=== PATIENT | male | born 1930 | race Caucasian/White ===

== ENCOUNTER 2017-07-31 16:13 | Observation (INO) | payer OTHER ==
[2017-07-31] VITALS (7 sets, daily range): BP systolic 114–140; BP diastolic 60–81; PULSE 62–77; RESP 14–18; TEMP 98.4–99.7; O2SAT 95–98
[~2017-07-31] VITALS: Ht 167.6 cm; Wt 50.7 kg
[~2017-07-31 16:13] MED LIST: CALCCHW9 PO; MULT1TAB85 PO; NUTR-215 PO
[2017-07-31] MEDS ORDERED: SODIUM CHLORIDE 0.9% FLUSH 10 ML FLUSH IVF PRN (16:30)
--- NOTE | 2017-07-31 16:32 | PD ---
HPI Chief Complaint: Cold / Flu Symptoms Time Seen by Provider: 16:22 Travel History International Travel<30 days: No Contact w/Intl Traveler<30days: No Traveled to known affect area: No History of Present Illness HPI 86-year-old male with history of diabetes, here with his for evaluation of cough. Apparently the patient has had cough and upper respiratory symptoms for the last 3 weeks. About 3 weeks ago he was prescribed a Z-Lam by his primary care physician. His symptoms have not improved and actually worsened over the last 2 days. Cough is nonproductive. He has not had any fevers. He denies chest pain or dyspnea. About an hour after the patient had arrived, more family has show up and they tell me that since yesterday the patient has been having episodes of shaking loss of off balance. PFSH Past Medical History Hx Anticoagulant Therapy: No Diabetes: No Social History Alcohol Use: No Tobacco Use: No Substance Use: No Allergies-Medications (Allergen,Severity, Reaction): Coded Allergies: No Known Allergies (Unverified Adverse Reaction, Unknown, 07/31/17) Reported Meds & Prescriptions Reported Meds & Active Scripts Active Reported Metformin (Metformin HCl) 500 Mg Tab 0.5 Tab PO BIDPC Tamsulosin (Tamsulosin HCl) 0.4 Mg Cap 0.4 Mg PO HS Finasteride 5 Mg Tab 5 Mg PO DAILY Do not crush. Review of Systems Except as stated in HPI: all other systems reviewed are Neg Physical Exam Narrative GENERAL: Well-developed, thin, elderly appearing male, comfortable, no apparent distress. SKIN: Focused skin assessment warm/dry. HEAD: Atraumatic. Normocephalic. EYES: Pupils equal and round. No scleral icterus. No injection or drainage. ENT: Mucous membranes pink and moist. NECK: Trachea midline. No JVD. CARDIOVASCULAR: Regular rate and rhythm. No murmur appreciated. RESPIRATORY: No accessory muscle use. Clear to auscultation. Breath sounds equal bilaterally. GASTROINTESTINAL: Abdomen soft, non-tender, nondistended. MUSCULOSKELETAL: No obvious deformities. No clubbing. No cyanosis. No edema. NEUROLOGICAL: Awake and alert. No obvious cranial nerve deficits. Motor grossly within normal limits. Normal speech. PSYCHIATRIC: Appropriate mood and affect; insight and judgment normal. Data Data Last Documented VS Vital Signs Date Time Temp Pulse Resp B/P (MAP) Pulse Ox O2 Delivery O2 Flow Rate FiO2 10/31/17 19:11 77 18 138/74 (95) 98 Room Air 07/31/17 16:16 98.4 Orders Orders Complete Blood Count With Diff (07/31/17 16:27) Comprehensive Metabolic Panel (07/31/17 16:27) Act Partial Throm Time (Ptt) (07/31/17 16:27) Prothrombin Time / Inr (Pt) (07/31/17 16:27) Urinalysis - C+S If Indicated (07/31/17 16:27) Influenzae A/B Antigen (07/31/17 16:27) Iv Access Insert/Monitor (07/31/17 16:27) Ecg Monitoring (07/31/17 16:27) Oximetry (07/31/17 16:27) Oxygen Administration (07/31/17 16:27) Chest, Single Ap (07/31/17 16:27) Sodium Chloride 0.9% Flush (Ns Flush) (07/31/17 16:30) Ct Brain W/O Iv Contrast(Rout) (07/31/17 ) Orthostatic Vital Signs (07/31/17 17:31) Electrocardiogram (07/31/17 ) Ckmb (Isoenzyme) Profile (07/31/17 17:53) Troponin I (07/31/17 17:53) Levofloxacin 500 Mg Premix Inj (Levaquin (07/31/17 18:45) Labs Laboratory Tests Test 07/31/17 16:40 07/31/17 17:35 White Blood Count 4.9 TH/MM3 Red Blood Count 3.94 MIL/MM3 Hemoglobin 12.2 GM/DL Hematocrit 37.5 % Mean Corpuscular Volume 95.3 FL Mean Corpuscular Hemoglobin 31.0 PG Mean Corpuscular Hemoglobin Concent 32.5 % Red Cell Distribution Width 12.8 % Platelet Count 162 TH/MM3 Mean Platelet Volume 8.4 FL Neutrophils (%) (Auto) 59.5 % Lymphocytes (%) (Auto) 23.0 % Monocytes (%) (Auto) 13.7 % Eosinophils (%) (Auto) 3.0 % Basophils (%) (Auto) 0.8 % Neutrophils # (Auto) 3.0 TH/MM3 Lymphocytes # (Auto) 1.1 TH/MM3 Monocytes # (Auto) 0.7 TH/MM3 Eosinophils # (Auto) 0.1 TH/MM3 Basophils # (Auto) 0.0 TH/MM3 CBC Comment DIFF FINAL Differential Comment Prothrombin Time 10.2 SEC Prothromb Time International Ratio 0.9 RATIO Activated Partial Thromboplast Time 27.1 SEC Blood Urea Nitrogen 32 MG/DL Creatinine 1.00 MG/DL Random Glucose 147 MG/DL Total Protein 6.8 GM/DL Albumin 2.9 GM/DL Calcium Level 8.8 MG/DL Alkaline Phosphatase 75 U/L Aspartate Amino Transf (AST/SGOT) 25 U/L Alanine Aminotransferase (ALT/SGPT) 18 U/L Total Bilirubin 0.4 MG/DL Sodium Level 140 MEQ/L Potassium Level 4.3 MEQ/L Chloride Level 103 MEQ/L Carbon Dioxide Level 30.8 MEQ/L Anion Gap 6 MEQ/L Estimat Glomerular Filtration Rate 71 ML/MIN Total Creatine Kinase 69 U/L Troponin I 0.06 NG/ML Urine Color YELLOW Urine Turbidity CLEAR Urine pH 7.0 Urine Specific [place] 1.020 Urine Protein NEG mg/dL Urine Glucose (UA) NEG mg/dL Urine Ketones NEG mg/dL Urine Occult Blood NEG Urine Nitrite NEG Urine Bilirubin NEG Urine Leukocyte Esterase NEG Urine WBC 0-2 /hpf Urine Squamous Epithelial Cells 0-5 /hpf Microscopic Urinalysis Comment CULT NOT INDICATED MDM Medical Decision Making Medical Screen Exam Complete: Yes Emergency Medical Condition: Yes Medical Record Reviewed: Yes Interpretation(s) EKG: Sinus, rate 63, leftward axis, left bundle branch block Differential Diagnosis Pneumonia, bronchitis, ACS, PE unlikely, influenza, URI Narrative Course Initial vital signs show heart rate 68, blood pressure 127/60, pulse ox 97% on room air, oral temp of 98.4F. Orthostatic vital signs were performed and shows that blood pressure goes from 140/81-124/72 114/70 from supine to sitting to standing with slight increase in heart rate from 63-79-81. CBC: WBC 4.9, hemoglobin 12.2, hematocrit 37.5, platelets 162. CMP is remarkable for random glucose 147, otherwise unremarkable. UA is not suggestive of UTI. 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 There is no evidence of pneumonia. CT head: No acute findings. Probable ischemic change in the white matter. EKG shows a left bundle branch block pattern. I do not have a previous one to compare to. The family is unaware of history of left bundle branch block. Cardiac enzymes added and show a troponin of 0.06. The patient is denying chest pain. He is however having dizziness upon standing and is unsteady on his feet. I will give him Levaquin for this deep sounding cough that he has which is likely bronchitis. He will be admitted for overnight observation for serial cardiac enzymes and reevaluation in the morning. Case discussed with hospitalist Dr. Lawson who will limit the patient to his service. Diagnosis Primary Impression: Generalized weakness Additional Impressions: Bronchitis Elevated troponin Left bundle branch block Eric Guzman MD Jul 31, 2017 16:32
[2017-07-31] MEDS ORDERED: TAMS0.4C4 PO (16:34)
[2017-07-31] MEDS ORDERED: METF500T PO (16:34)
[2017-07-31] MEDS ORDERED: FINA5TAB2 PO (16:34)
[2017-07-31 16:48] LABS: BASOPHIL % 0.8 % (0.0-2.0); EOSINOPHIL # 0.1 TH/MM3 (0-0.4); HEMATOCRIT 37.5 % (39.0-51.0); HEMO FLAGS DIFF FINAL; LYMPHOCYTE # 1.1 TH/MM3 (1.0-4.8); MEAN CELL VOLUME 95.3 FL (80.0-100.0); MEAN CORPUSCULAR HGB CONC 32.5 % (32.0-36.0); MONO % 13.7 % (0.0-8.0); NEUT % 59.5 % (16.0-70.0); PLATELET COUNT 162 TH/MM3 (150-450); RED BLOOD COUNT 3.94 MIL/MM3 (4.50-5.90); RED CELL DISTRIBUTION WIDTH 12.8 % (11.6-17.2); WHITE BLOOD COUNT 4.9 TH/MM3 (4.0-11.0)
[2017-07-31 16:56] LABS: CHLORIDE 103 MEQ/L (98-107); POTASSIUM 4.3 MEQ/L (3.5-5.1); SODIUM (NA) 140 MEQ/L (136-145)
[2017-07-31 16:59] LABS: ANION GAP 6 MEQ/L (5-15); APTT (PATIENT) 27.1 SEC (24.3-30.1); BICARBONATE 30.8 MEQ/L (21.0-32.0); BLOOD UREA NITROGEN 32 MG/DL (7-18); INTERNATIONAL NORMALIZED RATIO 0.9 RATIO; PROTHROMBIN TIME - PATIENT 10.2 SEC (9.8-11.6)
[2017-07-31 17:02] LABS: ALT (GPT) 18 U/L (12-78); AST (GOT) 25 U/L (15-37); GLOMERULAR FILTRATION RATE 71 ML/MIN (>89)
[2017-07-31 17:04] LABS: TOTAL BILIRUBIN ADULT 0.4 MG/DL (0.2-1.0)
[2017-07-31 17:05] LABS: ALKALINE PHOSPHATASE 75 U/L (45-117)
--- NOTE | 2017-07-31 17:15 | RADRPT ---
EXAM DATE/TIME: 07/31/2017 16:47 [facility] COMPARISON: No previous studies available for comparison. INDICATIONS : Short of breath MEDICAL HISTORY : None. SURGICAL HISTORY : None. ENCOUNTER: Initial ACUITY: 2 days PAIN SCORE: 0/10 LOCATION: chest FINDINGS: The cardiac silhouette is enlarged in transverse diameter. The aortic knob is prominent with tortuosi ty of the descending thoracic aorta. The background interstitium is prominent though this is likely c hronic in nature. There is no evidence of pneumonia. No pleural effusions are identified. CONCLUSION: 1. 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 There is no evidence of pneumonia. Mingo Hodge MD on July 31, 2017 at 17:12 Board Certified Radiologist. This report was verified electronically.
[2017-07-31 17:44] LABS: BLOOD, URINE NEG (NEG); GLUCOSE,URINE NEG (NEG); KETONE, URINE NEG (NEG); NITRITE,URINE NEG (NEG)
[2017-07-31 17:48] LABS: URINE COLOR YELLOW (YELLW/STRAW)
[2017-07-31 17:49] LABS: COMMENT (UR) CULT NOT INDICATED; CULTURE IF INDICATED CULT NOT INDICATED; SQUAMOUS EPITHELIAL CELL URINE 0-5 /hpf (0-5); WBC, URINE 0-2 /hpf (0-5)
--- NOTE | 2017-07-31 18:13 | RADRPT ---
EXAM DATE/TIME: 07/31/2017 17:46 [facility] COMPARISON: No previous studies available for comparison. INDICATIONS : Dizziness. RADIATION DOSE: 59.25 CTDIvol (mGy) MEDICAL HISTORY : Diabetes. SURGICAL HISTORY : None. ENCOUNTER: Initial ACUITY: 1 day PAIN SCALE: 0/10 LOCATION: cranial TECHNIQUE: Multiple contiguous axial images were obtained of the head. Using automated exposure control and adj ustment of the mA and/or kV according to patient size, radiation dose was kept as low as reasonably a chievable to obtain optimal diagnostic quality images. DICOM format image data is available electro nically for review and comparison. FINDINGS: CEREBRUM: The ventricles are normal for age. No evidence of midline shift, mass lesion, hemorrhage or acute in farction. Diffuse decreased attenuation in the supratentorial white matter suggesting ischemic demye lination. 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 No extra-axial fluid collections ar e seen. POSTERIOR FOSSA: The cerebellum and brainstem are intact. The 4th ventricle is midline. The cerebellopontine angle i s unremarkable. EXTRACRANIAL: The visualized portion of the orbits is intact. SKULL: The calvaria is intact. No evidence of skull fracture. CONCLUSION: 1. No acute findings. 2. Probable ischemic change in the white matter. Jon Curtis MD on July 31, 2017 at 18:10 Board Certified Radiologist. This report was verified electronically.
[2017-07-31] MEDS ORDERED: LEVOFLOXACIN 500 MG PREMIX INJ 100 ML IV ONE (18:45)
[2017-07-31] MEDS ORDERED: SENNOSIDES 8.6 MG TAB PO PRN (20:00)
[2017-07-31] MEDS ORDERED: SODIUM CHLORIDE 0.9% FLUSH 10 ML FLUSH IV FLUSH PRN (20:00)
[2017-07-31] MEDS ORDERED: NALOXONE HCL 0.4 MG/ML AMP IV PUSH PRN (20:00)
[2017-07-31] MEDS ORDERED: BISACODYL 10 MG SUPP RECTAL PRN (20:00)
[2017-07-31] MEDS ORDERED: MAGNESIUM HYDROXIDE SUSP 30 ML CUP PO PRN (20:00)
[2017-07-31] MEDS ORDERED: LACTULOSE SYRUP 20 GM/30 ML CUP PO PRN (20:00)
[2017-07-31] MEDS: D5-1/2 NS + KCL 20 MEQ INJ 1,000 ML IV SCH (20:57)
[2017-07-31] MEDS: INSULIN ASPART SUPPLEMENTAL SCALE SQ SCH (21:00)
--- NOTE | 2017-07-31 21:02 | EKG ---
Date Performed: 07/31/2017 Time Performed: 17:42:16 PTAGE: 86 years EKG: Sinus rhythm WITH FIRST DEGREE AV BLOCK MARKED LEFT AXIS DEVIATION LEFT BUNDLE BRANCH BLOCK ABNORMAL ECG PREVIOUS TRACING : 11/29/2001 07.31 Compared to the previous tracing LBBB now present DOCTOR: Pineda Foy Interpretating Date/Time 07/31/2017 21:01:38
[2017-07-31] MEDS: RESP: ALBUTEROL 2.5 MG/IPRATROPIUM 0.5 MG NEB (SCH) NEB (21:24)
[2017-07-31] MEDS: SODIUM CHLORIDE 0.9% FLUSH 10 ML FLUSH IV FLUSH SCH (23:03)
[2017-08-01] VITALS: BP 106/60; PULSE 65; RESP 16; TEMP 99.6; O2SAT 94
[2017-08-01] MEDS: RESP: ALBUTEROL 2.5 MG/IPRATROPIUM 0.5 MG NEB (SCH) NEB ×3 (02:51→15:25)
[2017-08-01 04:00] VITALS: BP 100/71; PULSE 70; RESP 16; TEMP 98.7; O2SAT 94
[2017-08-01 06:29] LABS: AUTOMATED NEUTROPHIL # 2.4 TH/MM3 (1.8-7.7); BASOPHIL % 0.4 % (0.0-2.0); EOSINOPHIL # 0.1 TH/MM3 (0-0.4); EOSINOPHIL % 1.6 % (0.0-4.0); HEMO FLAGS DIFF FINAL; LYMPH % 23.2 % (9.0-44.0); MEAN CELL VOLUME 95.9 FL (80.0-100.0); MEAN CORPUSCULAR HGB CONC 33.3 % (32.0-36.0); MONO % 14.1 % (0.0-8.0); NEUT % 60.7 % (16.0-70.0); PLATELET COUNT 160 TH/MM3 (150-450); RED BLOOD COUNT 3.65 MIL/MM3 (4.50-5.90); RED CELL DISTRIBUTION WIDTH 13.5 % (11.6-17.2); WHITE BLOOD COUNT 4.1 TH/MM3 (4.0-11.0)
[2017-08-01 06:34] LABS: CHLORIDE 102 MEQ/L (98-107); SODIUM (NA) 139 MEQ/L (136-145)
[2017-08-01 06:37] LABS: ANION GAP 8 MEQ/L (5-15); BICARBONATE 29.4 MEQ/L (21.0-32.0); BLOOD UREA NITROGEN 26 MG/DL (7-18)
[2017-08-01 06:40] LABS: ALT (GPT) 15 U/L (12-78); AST (GOT) 20 U/L (15-37); GLOMERULAR FILTRATION RATE 76 ML/MIN (>89)
[2017-08-01 06:42] LABS: TOTAL BILIRUBIN ADULT 0.3 MG/DL (0.2-1.0)
[2017-08-01 06:43] LABS: ALKALINE PHOSPHATASE 65 U/L (45-117)
[2017-08-01 07:50] VITALS: BP 115/61; PULSE 60; RESP 20; TEMP 97.5; O2SAT 97
[2017-08-01 08:00] VITALS: PULSE 68
[2017-08-01] MEDS: INSULIN ASPART SUPPLEMENTAL SCALE SQ SCH ×2 (08:00→13:57)
[2017-08-01] MEDS ORDERED: BENZONATATE 100 MG CAP PO PRN (09:00)
[2017-08-01] MEDS: ASPIRIN EC 81 MG TABEC PO SCH ×3 (09:00→13:59)
[2017-08-01] MEDS: SODIUM CHLORIDE 0.9% FLUSH 10 ML FLUSH IV FLUSH SCH (10:15)
[2017-08-01] MEDS: D5-1/2 NS + KCL 20 MEQ INJ 1,000 ML IV SCH (10:16)
[2017-08-01 11:50] VITALS: BP 111/64; PULSE 62; RESP 20; TEMP 97.5; O2SAT 97
--- NOTE | 2017-08-01 15:08 | HHI.HP ---
[facility] Service [place] [facility] Primary Care Physician Андрей Disla MD Admission Diagnosis generalized weakness, bronchitis, elevated troponin, LBBB Diagnoses: Travel History International Travel<30 Days: No Contact w/Intl Traveler <30 Da: No Traveled to Known Affected Are: No History of Present Illness This is a pleasant 86 year-old male with past medical history of BPH, borderline diabetes who was brought to the ER by his for evaluation of cough and generalized weakness. The patient has been having a cough for several weeks. This initially started with postnasal drip and runny nose. He was prescribed a Z-Lam by his primary care physician however the cough did not improve. Over the past several days has been getting deeper however he is not producing any sputum. Yesterday he was quite weak and his had to assist him getting up off the toilet and he fell suffering a bruise on his right forearm. The patient has not had any fever or chills. No dyspnea. No chest pain or pressure. No nausea or vomiting. No abdominal pain. No rashes. No difficulty urinating. In the emergency department his orthostatic blood pressure was positive. For some reason a troponin was checked which was mildly elevated at 0.06. EKG showed a left bundle branch block which the family was unaware of. He has no cardiac history and does not see a resident physician. They are unaware if he is ever had a stress test. The patient has not had any chest pain or pressure. No exertional dyspnea. No palpitations or pedal edema. No syncopal episodes. Chest x-ray in the emergency department revealed chronic interstitial changes without evidence of pneumonia. Patient has no tobacco history. The patient has been following with the neurologist Dr. Craft for evaluation of intermittent confusion and forgetfulness. He has not received formal diagnosis of dementia. History obtained from the patient his and daughter at bedside. Review of Systems Constitutional: DENIES: Fever, Chills Ears, nose, mouth, throat: COMPLAINS OF: Running Nose, DENIES: Throat pain, Hoarseness Respiratory: COMPLAINS OF: Cough, DENIES: Wheezing, Sputum production, Shortness of breath Cardiovascular: DENIES: Chest pain, Palpitations, Syncope, Lower Extremity Edema Gastrointestinal: DENIES: Constipation, Vomiting Genitourinary: DENIES: Urgency, Dysuria Musculoskeletal: DENIES: Muscle aches, Stiffness, Joint Swelling Integumentary: DENIES: Pruritus, Rash Hematologic/lymphatic: DENIES: Lymphadenopathy Neurologic: DENIES: Abnormal gait, Headache, Localized weakness Psychiatric: COMPLAINS OF: Confusion, DENIES: Anxiety Past Family Social History Past Medical History Confusion possible early dementia BPH with history of urinary retention Order underlying diabetes Past Surgical History He had some type of surgery for GERD daughters not sure if this was a fundoplication Right shoulder surgery 2003 Reported Medications Allergies Coded Allergies Type Severity Reaction Last Updated Verified No Known Allergies Allergy Unknown 07/31/17 No Active Scripts Medications Dose Route/Sig Max Daily Dose Days Date Category Dose Instructions Tessalon Perles (Benzonatate) 100 Mg Cap 100 Mg PO TID PRN 08/01/17 Rx Levaquin (Levofloxacin) 750 Mg Tablet 750 Mg PO DAILY@1800 08/01/17 Rx Metformin (Metformin HCl) 500 Mg Tab 0.5 Tab PO BIDPC 07/31/17 Reported Tamsulosin (Tamsulosin HCl) 0.4 Mg Cap 0.4 Mg PO HS 07/31/17 Reported Finasteride 5 Mg Tab 5 Mg PO DAILY 07/31/17 Reported Do not crush. Allergies: Coded Allergies: No Known Allergies (Unverified Allergy, Unknown, 07/31/17) Family History His father of a cardiac event Social History No history of alcohol tobacco or drug use He was in the and was a paratrooper Lives with his and his daughter lives nearby Physical Exam Vital Signs Vital Signs Date Time Temp Pulse Resp B/P (MAP) Pulse Ox O2 Delivery O2 Flow Rate FiO2 08/01/17 11:50 97.5 62 20 111/64 (80) 97 08/01/17 07:50 97.5 60 20 115/61 (79) 97 08/01/17 04:00 98.7 70 16 100/71 (81) 94 08/01/17 00:00 99.6 65 16 106/60 (75) 94 08/01/17 00:00 94 Room Air 07/31/17 21:30 62 07/31/17 21:15 99.7 65 18 138/78 (98) 95 07/31/17 19:11 77 18 138/74 (95) 98 Room Air 07/31/17 19:11 18 98 Room Air 07/31/17 18:06 62 16 140/77 (98) 96 Room Air 07/31/17 18:01 63 14 140/81 (100) 81 16 124/70 (88) 79 16 114/70 (85) 07/31/17 16:34 98 Room Air 07/31/17 16:29 98 Room Air 07/31/17 16:29 78 98 Room Air 07/31/17 16:16 98.4 68 16 127/60 (82) 97 Physical Exam GENERAL: Well-nourished, well-developed pleasant elderly male patient. SKIN: Warm and dry. No rashes. HEAD: Normocephalic. EYES: No scleral icterus. No injection or drainage. Oropharynx moist, no pharyngeal exudates. Does have some clear rhinorrhea. NECK: Supple, trachea midline. No JVD or lymphadenopathy. CARDIOVASCULAR: Regular rate and rhythm without murmurs, gallops, or rubs. RESPIRATORY: Breath sounds equal bilaterally. No accessory muscle use. Clear to auscultation bilaterally. GASTROINTESTINAL: Bowel sounds normal. Abdomen soft, non-tender, nondistended. EXTREMITIES: No cyanosis, or edema. NEUROLOGICAL: Awake, alert, and oriented x 3. Non-focal. Laboratory Laboratory Tests Test 07/31/17 16:40 07/31/17 17:35 08/01/17 02:40 08/01/17 06:00 White Blood Count 4.9 4.1 Red Blood Count 3.94 3.65 Hemoglobin 12.2 11.7 Hematocrit 37.5 35.0 Mean Corpuscular Volume 95.3 95.9 Mean Corpuscular Hemoglobin 31.0 32.0 Mean Corpuscular Hemoglobin Concent 32.5 33.3 Red Cell Distribution Width 12.8 13.5 Platelet Count 162 160 Mean Platelet Volume 8.4 8.4 Neutrophils (%) (Auto) 59.5 60.7 Lymphocytes (%) (Auto) 23.0 23.2 Monocytes (%) (Auto) 13.7 14.1 Eosinophils (%) (Auto) 3.0 1.6 Basophils (%) (Auto) 0.8 0.4 Neutrophils # (Auto) 3.0 2.4 Lymphocytes # (Auto) 1.1 1.0 Monocytes # (Auto) 0.7 0.6 Eosinophils # (Auto) 0.1 0.1 Basophils # (Auto) 0.0 0.0 CBC Comment DIFF FINAL DIFF FINAL Differential Comment Prothrombin Time 10.2 Prothromb Time International Ratio 0.9 Activated Partial Thromboplast Time 27.1 Blood Urea Nitrogen 32 26 Creatinine 1.00 0.94 Random Glucose 147 136 Total Protein 6.8 6.3 Albumin 2.9 2.7 Calcium Level 8.8 8.5 Alkaline Phosphatase 75 65 Aspartate Amino Transf (AST/SGOT) 25 20 Alanine Aminotransferase (ALT/SGPT) 18 15 Total Bilirubin 0.4 0.3 Sodium Level 140 139 Potassium Level 4.3 4.0 Chloride Level 103 102 Carbon Dioxide Level 30.8 29.4 Anion Gap 6 8 Estimat Glomerular Filtration Rate 71 76 Total Creatine Kinase 69 Troponin I 0.06 0.07 B-Type Natriuretic Peptide 552 Urine Color YELLOW Urine Turbidity CLEAR Urine pH 7.0 Urine Specific [place] 1.020 Urine Protein NEG Urine Glucose (UA) NEG Urine Ketones NEG Urine Occult Blood NEG Urine Nitrite NEG Urine Bilirubin NEG Urine Leukocyte Esterase NEG Urine WBC 0-2 Urine Squamous Epithelial Cells 0-5 Microscopic Urinalysis Comment CULT NOT INDICATED Test 08/01/17 08:25 Troponin I 0.09 Date/Time Source Procedure Growth Status 07/31/17 16:40 Nasal Washing Influenza Types A,B Antigen ([facility]BY) - Final NEGATIVE FOR FLU A AND B ANTIGEN.... Complete Result Diagram: 08/01/17 0600 08/01/17 0600 Imaging Last Impressions Chest X-Ray 07/31/17 1627 Signed Impressions: Service Date/Time: Monday, July 31, 2017 16:47 - CONCLUSION: 1. 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 There is no evidence of pneumonia. Mingo Hodge MD Head CT 07/31/17 0000 Signed Impressions: Service Date/Time: Monday, July 31, 2017 17:46 - CONCLUSION: 1. No acute findings. 2. Probable ischemic change in the white matter. MD Pastor Villalobos VTE Risk Assessment Caprini VTE Risk Assessment: Mod/High Risk (score >= 2) Caprini Risk Assessment Model Point Value = 1 Point Value = 2 Point Value = 3 Point Value = 5 Age 41-60 Minor surgery BMI > 25 kg/m2 Swollen legs Varicose veins or History of unexplained or recurrent spontaneous Oral contraceptives or hormone replacement Sepsis (< 1 month) Serious lung disease, including pneumonia (< 1 month) Abnormal pulmonary function Acute myocardial infarction Congestive heart failure (< 1 month) History of inflammatory bowel disease Medical patient at bed rest Age 61-74 Arthroscopic surgery Major open surgery (> 45 min) Laparoscopic surgery (> 45 min) Malignancy Confined to bed (> 72 hours) Immobilizing plaster cast Central venous access Age >= 75 History of VTE Family history of VTE Factor V Leiden Prothrombin [id number] Lupus anticoagulant Anticardiolipin antibodies Elevated serum homocysteine Heparin-induced thrombocytopenia Other congenital or acquired thrombophilia Stroke (< 1 month) Elective arthroplasty Hip, pelvis, or leg fracture Acute spinal cord injury (< 1 month) Prophylaxis Regimen Total Risk Factor Score Risk Level Prophylaxis Regimen 0-1 Low Early ambulation 2 Moderate Order ONE of the following: *Sequential Compression Device (SCD) *Heparin 5000 units SQ BID 3-4 Higher Order ONE of the following medications: *Heparin 5000 units SQ TID *Enoxaparin/Lovenox 40 mg SQ daily (WT < 150 kg, CrCl > 30 mL/min) *Enoxaparin/Lovenox 30 mg SQ daily (WT < 150 kg, CrCl > 10-29 mL/min) *Enoxaparin/Lovenox 30 mg SQ BID (WT < 150 kg, CrCl > 30 mL/min) AND/OR *Sequential Compression Device (SCD) 5 or more Highest Order ONE of the following medications: *Heparin 5000 units SQ TID (Preferred with Epidurals) *Enoxaparin/Lovenox 40 mg SQ daily (WT < 150 kg, CrCl > 30 mL/min) *Enoxaparin/Lovenox 30 mg SQ daily (WT < 150 kg, CrCl > 10-29 mL/min) *Enoxaparin/Lovenox 30 mg SQ BID (WT < 150 kg, CrCl > 30 mL/min) AND *Sequential Compression Device (SCD) Assessment and Plan Problem List: (1) Orthostatic hypotension ICD Code: I95.1 - Orthostatic hypotension (2) Generalized weakness ICD Code: R53.1 - Weakness Status: Acute (3) Elevated troponin ICD Code: R74.8 - Abnormal levels of other serum enzymes Status: Acute (4) Left bundle branch block ICD Code: I44.7 - Left bundle-branch block, unspecified Status: Acute (5) Bronchitis ICD Code: J40 - Bronchitis, not specified as acute or chronic Status: Acute Assessment and Plan -Bronchitis, sounds a get started off as a virally upper respiratory tract infection. Chest x-ray is not indicative of any infection does show chronic interstitial changes. Patient had received a Z-Lam 2 weeks ago. We will treat him with Levaquin for 7 days. Patient and his family however were educated that he may have cough for up to several weeks after virally upper respiratory tract infection and the antibiotics are not likely to help. They were reassured he has no signs or symptoms consistent with pneumonia. He will be prescribed Levaquin and Tessalon Perles. He is to follow-up with his primary care physician next week. -Left bundle branch block, mildly elevated enzymes which is nonspecific in the absence of any chest pain or pressure. Ischemic workup and cardiology evaluation was offered however the family declines at this time preferring to take him home. -Generalized weakness with orthostatic hypotension. The patient has received IV fluids overnight. He ambulated 130 feet with light contact guard assist with physical therapy. Recommend home health care, this has been ordered. Family counseled on taking care with position changes due to its orthostatic hypertension. Advised that Flomax can worsen orthostatic hypotension however due to his history of urinary retention it sounds as if he needs to stay on this medication. Advised to stay well-hydrated. Discharge home today with home health care Follow-up with PCP next week Stefany Shelton MD Aug 01, 2017 15:08
[2017-08-01] MEDS ORDERED: LEVA750T9 PO (15:11)
[2017-08-01] MEDS ORDERED: BENZ100 PO (15:11)
--- NOTE | 2017-08-01 15:12 | HHI.FF ---
Face to Face Verification Diagnosis: (1) Generalized weakness (2) Bronchitis Physical Therapy Order: Evaluate and Treat Home Health Nursing Order: Medical education Nursing assessment with vital signs I have seen patient Josef Romero on 08/01/17. My clinical findings support the need for the requested home health care services because: Ltd mobility - disease progression Deconditioned w/ increased weakness I certify that my clinical findings support that this patient is homebound because: Impaired cognitive ability/safety Unsteady gait/balance Need for psychosocial assistance Stefany Shelton MD Aug 01, 2017 15:12
[2017-08-01] MEDS ORDERED: LEVOFLOXACIN 750 MG TAB PO SCH ×2 (15:15→18:00)
--- NOTE | 2017-08-01 15:18 | EKG ---
Date Performed: 08/01/2017 Time Performed: 08:28:03 PTAGE: 86 years EKG: ATRIAL FIBRILLATION WITH SLOW VENTRICULAR RESPONSE PAC MARKED LEFT AXIS DEVIATION LEFT BUND LE BRANCH BLOCK ABNORMAL ECG PREVIOUS TRACING : 08/01/2017 02.44 Compared to prior tracing no significant change DOCTOR: Pineda Foy Interpretating Date/Time 08/01/2017 15:16:51
--- NOTE | 2017-08-01 15:27 | EKG ---
Date Performed: 08/01/2017 Time Performed: 02:44:13 PTAGE: 86 years EKG: Sinus rhythm WITH FIRST DEGREE AV BLOCK MARKED LEFT AXIS DEVIATION LEFT BUNDLE BRANCH BLOCK ABNORMAL ECG PREVIOUS TRACING : 07/31/2017 17.42 Compared to prior tracing no significant change DOCTOR: Pineda Foy Interpretating Date/Time 08/01/2017 15:26:07
[2017-08-01 15:30] VITALS: BP 122/66; PULSE 76; RESP 20; TEMP 97.4; O2SAT 95
[2017-08-01] MEDS ORDERED: ASPI1TAB57 PO (15:59)
== END 2017-08-01 16:44 | disposition home or self-care (01) ==
LOC: PHED 16:13 → PHEDA 19:49 → PH3A 21:12
PROVIDERS: ADMIT Family Medicine; ATTEND Family Medicine
DX: J40 Bronchitis, not specified as acute or chronic (principal); I95.1 Orthostatic hypotension; R74.8 Abnormal levels of other serum enzymes; I44.7 Left bundle-branch block, unspecified; N40.1 Benign prostatic hyperplasia with lower urinary tract symptoms; R33.8 Other retention of urine; R73.03 Prediabetes; R09.82 Postnasal drip; R94.31 Abnormal electrocardiogram [ECG] [EKG]; R06.02 Shortness of breath
CPT/HCPCS: 70450; 71010; 80053; 81001; 82550; 82948; 83880; 84484; 85025; 85610; 85730; 87804; 93005; 94640; 94664; 96365; 96372; 97162; 99285; G0378; G8987; G8988; J1815; J1956; J3480

== ENCOUNTER 2018-05-09 16:53 | Observation (INO) ==
[2018-05-09] MEDS ORDERED: Diphtheria/Tetanus/Pertussis Vaccine Inj 0.5 ML Syringe IM ONE (18:21)
[2018-05-09] MEDS ORDERED: Sod Chloride 0.9% Inj 1,000 ML IV.CONT SCH ×2 (18:30→23:45)
--- NOTE | 2018-05-09 18:37 | ED ---
HPI General Chief Complaint: Fall Stated Complaint: Fell/Lac Head/Rt Rib/Arm Pain x45Min Time Seen by Provider: 05/09/18 18:11 Source: family Limitations: no limitations History of Present Illness HPI Narrative: Patient is an 87-year-old male, past medical history significant for recurrent pneumonia, stopped last antibiotics approximately 1 month ago, who presents with complaint of a fall from standing. Family states that he has been falling more and more frequently recently secondary to generalized weakness. He is supposed to get set up with physical therapy but has not been able to do so yet. Today at approximately 3 PM he again fell from standing and hit the back of his head and his right elbow. He did not lose consciousness. No nausea nor vomiting since then. No chest pain, dyspnea, abdominal pain. He has had decreased p.o. intake per the family. Patient is a poor historian and most of the history comes from the family. MD complaint: fall Onset (ago): hour(s) Fall from: standing Fall witnessed: yes, by family Place fall occurred: home Loss of consciousness: none Prolonged down time: no Symptoms prior to fall: none Context: history of frequent falls Location of injury: head Related Data Home Medications Medication Instructions Recorded Confirmed finasteride 5 mg PO DAILY 05/10/18 05/10/18 metformin 500 mg PO BID 05/10/18 05/10/18 tamsulosin 0.4 mg PO DAILY 05/10/18 05/10/18 vit C,C-Ve-zgmou-lutein-zeaxan 1 tab PO BID 05/10/18 05/10/18 [PreserVision AREDS 2] Previous Rx's Medication Instructions Recorded carvedilol [Coreg] 3.125 mg PO BID #62 tab 05/12/18 pantoprazole 40 mg PO DAILY #0 tab 05/12/18 Allergies Allergy/AdvReac Type Severity Reaction Status Date / Time No Known Allergies Allergy Unknown none Uncoded 05/09/18 18:52 Review of Systems ROS: all other systems reviewed are negative Constitutional Denies chills, Denies fever(s) and Reports poor appetite Eyes Denies blurry vision ENT Denies nasal congestion and Denies nasal trauma Cardiovascular Denies chest pain Respiratory Denies dyspnea Gastrointestinal Denies abdominal pain, Denies diarrhea, Denies nausea and Denies vomiting Genitourinary Denies flank pain Musculoskeletal Denies back pain Integumentary/Breasts Denies rash and Reports wounds Neurologic Denies headache(s) and Reports weakness (generalized) Psychiatric Denies confusion Endocrine Reports fatigue PMF Family History Family History Other Unknown family medical history Social History Social History Substance History: No History of Abuse Second Hand Smoke Exposure: No Smoking Status: Never smoker How Often Do You Have a Drink Containing Alcohol: Never Recent Travel in [facility] within the Last 8 Weeks: No Recent Out of Country Travel within the Last 8 Weeks: No Exam Narrative Exam Narrative: GENERAL: Cachectic, chronically ill-appearing male in no acute distress SKIN: Focused skin assessment warm/dry. No rashes. Skin tear to right elbow. Laceration to posterior head. HEAD: Normocephalic. EYES: Pupils equal and round. No scleral icterus. No injection or drainage. ENT: No nasal bleeding or discharge. Mucous membranes pink and moist. NECK: Trachea midline. No JVD. CARDIOVASCULAR: Regular rate and rhythm. No murmur appreciated. RESPIRATORY: No accessory muscle use. Coarse breath sounds bilaterally. Breath sounds equal bilaterally. GASTROINTESTINAL: Abdomen soft, non-tender, nondistended. Hepatic and splenic margins not palpable. MUSCULOSKELETAL: No obvious deformities. No clubbing. No cyanosis. No edema. NEUROLOGICAL: Awake and alert. No obvious cranial nerve deficits. Diffuse generalized weakness. PSYCHIATRIC: Stoic. Procedures Laceration Laceration 1: Site: scalp Size (cm): 2.5 Description: linear Depth: simple, single layer Anesthetic used: with epi Anesthesia technique:: local infiltration Amount (mL): 2 Pre-repair:: wound explored, irrigated extensively and deep structures intact Skin layer closed with: suresh Number of sutures:: 4 Course Initial Documented Vital Signs Temperature 97.3 F L 05/09/18 17:08 Pulse Rate 61 05/09/18 17:08 Respiratory Rate 18 05/09/18 17:08 Blood Pressure 110/52 L 05/09/18 17:08 Pulse Oximetry 97 05/09/18 17:08 Last Documented Vital Signs Temperature 97.7 F 05/12/18 12:00 Pulse Rate 94 H 05/12/18 12:00 Respiratory Rate 33 H 05/12/18 12:00 Blood Pressure 101/83 05/12/18 12:00 Pulse Oximetry 100 05/12/18 09:31 Sign Out Sign Out Data: Patient Sign Out occurred on 05/09/18 at 19:28. Patient's care was discussed, and care was transferred from Elise Maher MD to Josef Sorensen MD. Sign Out Comment: Labs and CT pending. Last updated by Elise Maher MD at 05/09/18 19:17 Post-Handoff Eval: 2136 reassessed patient. Family is waiting at bedside with patient and I informed them on their findings so far. I recommended that they consider admission for observation versus rehab placement even if CTs returned normal. There is no evidence of elbow fracture. Chest x-ray demonstrates cardiomegaly bilateral small pleural effusions and some degree of pulmonary edema. However the patient is not in any respiratory distress and is hemodynamically stable. Patient returned from CT about 10-15 minutes prior to my reassessment; at this time awaiting reads of CTs. I spoke with Dr. Devon cooney with about the patient's case. She agreed to admit him for pain management and observation of a bruised rib. Although the ribs are broken it is causing patient significant pain, he has underlying comorbidities, his family is stressed and lacks resources to care for him at home, and I am concerned that without admission to the hospital for incentive spirometry physical therapy and pain management he may deteriorate similar to a patient with an actual rib fracture. Medical Decision Making MDM Narrative Medical decision making narrative: Patient is an 87-year-old male who presents with complaint of generalized weakness, failure to thrive, recurrent falls. He has a skin tear to his right elbow and a laceration to his posterior head on arrival. The laceration will be repaired by the [facility] in-house at this time. Tetanus Status has been updated. Labs and CT are pending at time of checkout. Differential Diagnosis Differential Diagnosis: Differential diagnosis includes but is not limited to recurrent pneumonia, failure to thrive, dehydration, closed head injury, urinary tract infection. Medical Records Medical records reviewed: Yes I reviewed the patient's medical records. Lab Data Result diagrams: 05/10/18 09:05 05/10/18 09:05 Lab Results 05/09/18 05/09/18 05/09/18 Range/Units 19:15 19:15 19:15 CBC w Diff Slide review pending WBC 7.1 (4.0-11.0) th/mm3 RBC 3.97 L (4.50-5.90) mil/mm3 Hgb 12.6 L (13.0-17.0) gm/dL Hct 37.2 L (39.0-51.0) % MCV 93.8 (80.0-100.0) fL MCH 31.8 (27.0-34.0) pg MCHC 33.9 (32.0-36.0) % RDW 16.0 (11.6-17.2) % Plt Count 225 (150-450) th/mm3 MPV 9.4 (7.0-11.0) fL Neut % (Auto) 81.1 H (16.0-70.0) % Lymph % (Auto) 9.6 (9.0-44.0) % Foster % (Auto) 8.5 H (0.0-8.0) % Eos % (Auto) 0.5 (0.0-4.0) % Baso % (Auto) 0.3 (0.0-2.0) % Neut # (Auto) 5.8 (1.8-7.7) th/mm3 Lymph # (Auto) 0.7 L (1.0-4.8) th/mm3 Foster # (Auto) 0.6 (0.0-0.9) th/mm3 Eos # (Auto) 0.0 (0.0-0.4) th/mm3 Baso # (Auto) 0.0 (0.0-0.2) th/mm3 WBC Differential . Diff Scan Auto diff confirmed Differential Comment . Platelet Estimate Normal (Normal) Platelet Morphology Normal (Normal) Ovalocytes 1+ H (None) PT 11.3 (9.8-11.6) sec INR 1.1 Ratio APTT 26.1 (24.3-30.1) sec Sodium 138 (136-145) meq/L Potassium 4.4 (3.5-5.1) meq/L Chloride 103 (98-107) meq/L Carbon Dioxide 28.0 (21.0-32.0) meq/L Anion Gap 7 (5-15) meq/L BUN 28 H (7-18) mg/dL Creatinine 1.10 (0.60-1.30) mg/dL Estimated GFR 63 L (>89) mL/min POC Glucose (68-110) mg/dl Random Glucose 227 H (74-106) mg/dL Hemoglobin A1c (4.3-6.0) % Calcium 8.4 L (8.5-10.1) mg/dL Troponin I 0.06 H (0.02-0.05) ng/mL B-Natriuretic Peptide (0-100) pg/mL TSH (0.358-3.740) uIU/mL 05/09/18 05/10/18 05/10/18 Range/Units 19:15 09:05 09:05 CBC w Diff Auto diff final WBC 7.1 (4.0-11.0) th/mm3 RBC 3.98 L (4.50-5.90) mil/mm3 Hgb 12.4 L (13.0-17.0) gm/dL Hct 38.4 L (39.0-51.0) % MCV 96.5 (80.0-100.0) fL MCH 31.1 (27.0-34.0) pg MCHC 32.3 (32.0-36.0) % RDW 15.7 (11.6-17.2) % Plt Count 203 (150-450) th/mm3 MPV 9.0 (7.0-11.0) fL Neut % (Auto) 71.1 H (16.0-70.0) % Lymph % (Auto) 14.4 (9.0-44.0) % Foster % (Auto) 12.3 H (0.0-8.0) % Eos % (Auto) 0.3 (0.0-4.0) % Baso % (Auto) 1.9 (0.0-2.0) % Neut # (Auto) 5.1 (1.8-7.7) th/mm3 Lymph # (Auto) 1.0 (1.0-4.8) th/mm3 Foster # (Auto) 0.9 (0.0-0.9) th/mm3 Eos # (Auto) 0.0 (0.0-0.4) th/mm3 Baso # (Auto) 0.1 (0.0-0.2) th/mm3 WBC Differential . Diff Scan Differential Comment . Platelet Estimate (Normal) Platelet Morphology (Normal) Ovalocytes (None) PT (9.8-11.6) sec INR Ratio APTT (24.3-30.1) sec Sodium 141 (136-145) meq/L Potassium 4.4 (3.5-5.1) meq/L Chloride 107 (98-107) meq/L Carbon Dioxide 25.5 (21.0-32.0) meq/L Anion Gap 9 (5-15) meq/L BUN 25 H (7-18) mg/dL Creatinine 0.95 (0.60-1.30) mg/dL Estimated GFR 75 L (>89) mL/min POC Glucose (68-110) mg/dl Random Glucose 184 H (74-106) mg/dL Hemoglobin A1c 6.5 H (4.3-6.0) % Calcium 8.3 L (8.5-10.1) mg/dL Troponin I (0.02-0.05) ng/mL B-Natriuretic Peptide (0-100) pg/mL TSH (0.358-3.740) uIU/mL 05/10/18 05/10/18 05/10/18 Range/Units 09:05 09:05 13:12 CBC w Diff WBC (4.0-11.0) th/mm3 RBC (4.50-5.90) mil/mm3 Hgb (13.0-17.0) gm/dL Hct (39.0-51.0) % MCV (80.0-100.0) fL MCH (27.0-34.0) pg MCHC (32.0-36.0) % RDW (11.6-17.2) % Plt Count (150-450) th/mm3 MPV (7.0-11.0) fL Neut % (Auto) (16.0-70.0) % Lymph % (Auto) (9.0-44.0) % Foster % (Auto) (0.0-8.0) % Eos % (Auto) (0.0-4.0) % Baso % (Auto) (0.0-2.0) % Neut # (Auto) (1.8-7.7) th/mm3 Lymph # (Auto) (1.0-4.8) th/mm3 Foster # (Auto) (0.0-0.9) th/mm3 Eos # (Auto) (0.0-0.4) th/mm3 Baso # (Auto) (0.0-0.2) th/mm3 WBC Differential Diff Scan Differential Comment Platelet Estimate (Normal) Platelet Morphology (Normal) Ovalocytes (None) PT (9.8-11.6) sec INR Ratio APTT (24.3-30.1) sec Sodium (136-145) meq/L Potassium (3.5-5.1) meq/L Chloride (98-107) meq/L Carbon Dioxide (21.0-32.0) meq/L Anion Gap (5-15) meq/L BUN (7-18) mg/dL Creatinine (0.60-1.30) mg/dL Estimated GFR (>89) mL/min POC Glucose 163 H (68-110) mg/dl Random Glucose (74-106) mg/dL Hemoglobin A1c (4.3-6.0) % Calcium (8.5-10.1) mg/dL Troponin I 0.09 H (0.02-0.05) ng/mL B-Natriuretic Peptide 2586 H (0-100) pg/mL TSH 5.790 H (0.358-3.740) uIU/mL 05/10/18 05/10/18 05/11/18 Range/Units 16:40 20:17 03:09 CBC w Diff WBC (4.0-11.0) th/mm3 RBC (4.50-5.90) mil/mm3 Hgb (13.0-17.0) gm/dL Hct (39.0-51.0) % MCV (80.0-100.0) fL MCH (27.0-34.0) pg MCHC (32.0-36.0) % RDW (11.6-17.2) % Plt Count (150-450) th/mm3 MPV (7.0-11.0) fL Neut % (Auto) (16.0-70.0) % Lymph % (Auto) (9.0-44.0) % Foster % (Auto) (0.0-8.0) % Eos % (Auto) (0.0-4.0) % Baso % (Auto) (0.0-2.0) % Neut # (Auto) (1.8-7.7) th/mm3 Lymph # (Auto) (1.0-4.8) th/mm3 Foster # (Auto) (0.0-0.9) th/mm3 Eos # (Auto) (0.0-0.4) th/mm3 Baso # (Auto) (0.0-0.2) th/mm3 WBC Differential Diff Scan Differential Comment Platelet Estimate (Normal) Platelet Morphology (Normal) Ovalocytes (None) PT (9.8-11.6) sec INR Ratio APTT (24.3-30.1) sec Sodium (136-145) meq/L Potassium (3.5-5.1) meq/L Chloride (98-107) meq/L Carbon Dioxide (21.0-32.0) meq/L Anion Gap (5-15) meq/L BUN (7-18) mg/dL Creatinine (0.60-1.30) mg/dL Estimated GFR (>89) mL/min POC Glucose 86 105 114 H (68-110) mg/dl Random Glucose (74-106) mg/dL Hemoglobin A1c (4.3-6.0) % Calcium (8.5-10.1) mg/dL Troponin I (0.02-0.05) ng/mL B-Natriuretic Peptide (0-100) pg/mL TSH (0.358-3.740) uIU/mL 05/11/18 05/11/18 05/11/18 Range/Units 08:46 12:35 16:53 CBC w Diff WBC (4.0-11.0) th/mm3 RBC (4.50-5.90) mil/mm3 Hgb (13.0-17.0) gm/dL Hct (39.0-51.0) % MCV (80.0-100.0) fL MCH (27.0-34.0) pg MCHC (32.0-36.0) % RDW (11.6-17.2) % Plt Count (150-450) th/mm3 MPV (7.0-11.0) fL Neut % (Auto) (16.0-70.0) % Lymph % (Auto) (9.0-44.0) % Foster % (Auto) (0.0-8.0) % Eos % (Auto) (0.0-4.0) % Baso % (Auto) (0.0-2.0) % Neut # (Auto) (1.8-7.7) th/mm3 Lymph # (Auto) (1.0-4.8) th/mm3 Foster # (Auto) (0.0-0.9) th/mm3 Eos # (Auto) (0.0-0.4) th/mm3 Baso # (Auto) (0.0-0.2) th/mm3 WBC Differential Diff Scan Differential Comment Platelet Estimate (Normal) Platelet Morphology (Normal) Ovalocytes (None) PT (9.8-11.6) sec INR Ratio APTT (24.3-30.1) sec Sodium (136-145) meq/L Potassium (3.5-5.1) meq/L Chloride (98-107) meq/L Carbon Dioxide (21.0-32.0) meq/L Anion Gap (5-15) meq/L BUN (7-18) mg/dL Creatinine (0.60-1.30) mg/dL Estimated GFR (>89) mL/min POC Glucose 113 H 137 H 131 H (68-110) mg/dl Random Glucose (74-106) mg/dL Hemoglobin A1c (4.3-6.0) % Calcium (8.5-10.1) mg/dL Troponin I (0.02-0.05) ng/mL B-Natriuretic Peptide (0-100) pg/mL TSH (0.358-3.740) uIU/mL 05/11/18 05/12/18 Range/Units 20:56 09:05 CBC w Diff WBC (4.0-11.0) th/mm3 RBC (4.50-5.90) mil/mm3 Hgb (13.0-17.0) gm/dL Hct (39.0-51.0) % MCV (80.0-100.0) fL MCH (27.0-34.0) pg MCHC (32.0-36.0) % RDW (11.6-17.2) % Plt Count (150-450) th/mm3 MPV (7.0-11.0) fL Neut % (Auto) (16.0-70.0) % Lymph % (Auto) (9.0-44.0) % Foster % (Auto) (0.0-8.0) % Eos % (Auto) (0.0-4.0) % Baso % (Auto) (0.0-2.0) % Neut # (Auto) (1.8-7.7) th/mm3 Lymph # (Auto) (1.0-4.8) th/mm3 Foster # (Auto) (0.0-0.9) th/mm3 Eos # (Auto) (0.0-0.4) th/mm3 Baso # (Auto) (0.0-0.2) th/mm3 WBC Differential Diff Scan Differential Comment Platelet Estimate (Normal) Platelet Morphology (Normal) Ovalocytes (None) PT (9.8-11.6) sec INR Ratio APTT (24.3-30.1) sec Sodium (136-145) meq/L Potassium (3.5-5.1) meq/L Chloride (98-107) meq/L Carbon Dioxide (21.0-32.0) meq/L Anion Gap (5-15) meq/L BUN (7-18) mg/dL Creatinine (0.60-1.30) mg/dL Estimated GFR (>89) mL/min POC Glucose 162 H 122 H (68-110) mg/dl Random Glucose (74-106) mg/dL Hemoglobin A1c (4.3-6.0) % Calcium (8.5-10.1) mg/dL Troponin I (0.02-0.05) ng/mL B-Natriuretic Peptide (0-100) pg/mL TSH (0.358-3.740) uIU/mL Imaging Data Radiologist's impression: Abdomen/Pelvis CT 05/09/18 18:21 CONCLUSION: 1. Bilateral pleural effusions and bibasilar airspace disease. 2. Moderate cardiomegaly. 3. Bilateral renal cortical thinning. 4. Left adrenal gland nodule measuring 3.1 cm 5. Prostatomegaly 6. No evidence of acute intestinal abnormality, suspicious mass or lymphadenopathy. Cervical Spine CT 05/09/18 18:21 CONCLUSION: 1. No evidence of acute bony or soft tissue trauma. 2. Mild degenerative listhesis at C4-5 and C6-7. 3. Severe degenerative disc disease at C4-5, C5-6 and C6-[address] 05/09/18 18:21 CONCLUSION: 1. Cardiomegaly associated with mild interstitial edema and bilateral effusions characteristic of congestive heart failure. 2. Bibasilar airspace disease 3. No evidence of acute trauma. Chest X-Ray 05/09/18 18:21 CONCLUSION: Cardiomegaly with interstitial vascular congestion and bibasilar airspace disease. Bilateral pleural effusions Elbow X-Ray 05/09/18 18:21 CONCLUSION: No evidence of recent bony injury. Head CT 05/09/18 18:21 CONCLUSION: 1. No evidence of acute infarct, hemorrhage, mass or edema. 2. 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 3. Significant change since previous study in 2017. . Discharge Plan Discharge Disposition Patient Disposition: 30 Still Patient Discharge Condition Condition: Stable Discharge Order Discharge Orders: Discharge Order (Routine); Ordered 05/12/18 Ordered By: Anna Faulkner Discharge Details Diagnosis: CHI (closed head injury) Physicians Team ED Provider: Josef Sorensen Primary Care Provider: Андрей Disla Attending Provider: Anna Faulkner Other Providers: Sarath Del Cid [employer] Status ED Status: Left Department Discharge Information Discharge Date/Time: 05/10/18 00:45
--- NOTE | 2018-05-09 19:01 | XR ---
EXAM DATE: 05/09/2018 6:55 PM EDT AGE/SEX: 87 years / Male INDICATIONS: Fall this afternoon. CLINICAL DATA: This is the patient's initial encounter. Patient reports that signs and symptoms have been present for 1 day and indicates a pain score of 3/10. MEDICAL/SURGICAL HISTORY: Diabetes. None. COMPARISON: POI, XR CHEST PA AND LAT, 02/22/2018. . FINDINGS: Diffuse interstitial vascular prominence with bibasilar airspace disease and bilateral effusions are noted. Heart is moderately enlarged. There is generalized decreased bone density. CONCLUSION: Cardiomegaly with interstitial vascular congestion and bibasilar airspace disease. Bilateral pleural effusions Electronically signed by: Refugio Reese MD 05/09/2018 6:59 PM EDT
--- NOTE | 2018-05-09 19:10 | XR ---
EXAM DATE: 05/09/2018 7:07 PM EDT AGE/SEX: 87 years / Male INDICATIONS: Fall today. CLINICAL DATA: This is the patient's initial encounter. Patient reports that signs and symptoms have been present for 1 day and indicates a pain score of 5/10. MEDICAL/SURGICAL HISTORY: Diabetes. None. COMPARISON: No prior exams available for comparison. FINDINGS: Bony structures are intact and in normal alignment. Joints are intact without dislocation or signifi cant arthropathy. Osseous density is normal. Soft tissues are unremarkable. No radiopaque foreign bodies seen. CONCLUSION: No evidence of recent bony injury. Electronically signed by: Refugio Reese MD 05/09/2018 7:09 PM EDT
[2018-05-09 19:30] LABS: Baso % (Auto) 0.3 % (0.0-2.0); Eos % (Auto) 0.5 % (0.0-4.0); Hematocrit 37.2 % (39.0-51.0); Hemoglobin 12.6 gm/dL (13.0-17.0); Lymph # (Auto) 0.7 th/mm3 (1.0-4.8); Lymph % (Auto) 9.6 % (9.0-44.0); Mean Corpuscular HGB Conc 33.9 % (32.0-36.0); Mean Corpuscular Hemoglobin 31.8 pg (27.0-34.0); Mean Corpuscular Volume 93.8 fL (80.0-100.0); Mean Platelet Volume 9.4 fL (7.0-11.0); Mono # (Auto) 0.6 th/mm3 (0.0-0.9); Mono % (Auto) 8.5 % (0.0-8.0); Neut # (Auto) 5.8 th/mm3 (1.8-7.7); Neut % (Auto) 81.1 % (16.0-70.0); Platelet Count 225 th/mm3 (150-450); Red Blood Count 3.97 mil/mm3 (4.50-5.90); White Blood Count 7.1 th/mm3 (4.0-11.0)
[2018-05-09 19:37] LABS: Potassium 4.4 meq/L (3.5-5.1)
[2018-05-09 19:39] LABS: Calcium 8.4 mg/dL (8.5-10.1)
[2018-05-09 19:42] LABS: Activated Partial Thrombo Time 26.1 sec (24.3-30.1); INR 1.1 Ratio; Prothrombin Time 11.3 sec (9.8-11.6)
[2018-05-09 19:45] LABS: Ovalocytes 1+
[2018-05-09 19:46] LABS: Platelet Estimate Normal (Normal); Platelet Morphology Normal (Normal)
[2018-05-09 19:48] LABS: Troponin I 0.06 ng/mL (0.02-0.05)
--- NOTE | 2018-05-09 22:18 | CT ---
EXAM DATE: 05/09/2018 10:01 PM EDT AGE/SEX: 87 years / Male INDICATIONS: Patient fell and hit head. Also suffered right rib injury and right arm. CLINICAL DATA: This is the patient's initial encounter. Patient reports that signs and symptoms have been present for 1 day and indicates a pain score of 7/10. MEDICAL/SURGICAL HISTORY: Dementia. Gastroesophageal reflux disease. Diabetes, hypothyroidism, pne umonia. . Mik fundoplication. RADIATION DOSE: 62.70 CTDI (mGy) COMPARISON: PO, CT BRAIN W/O CONTRAST, 07/31/2017. . TECHNIQUE: CT of the head without contrast. Using automated exposure control and adjustment of the mA and/or kV according to patient size, radiation dose was kept as low as reasonably achievable to ob tain optimal diagnostic quality images. DICOM format image data is available electronically for revi ew and comparison. FINDINGS: Cerebrum: Generalized enlargement of the CSF spaces is noted. There is significant hypodensity throu ghout the cerebral white matter with loss of volume. There are no characteristic findings of an acute infarct or hemorrhage. There is no mass effect or edema. Posterior Fossa: The cerebellum and brainstem are intact. The 4th ventricle is midline. The cerebe llopontine angle is unremarkable. Extracranial: The visualized portion of the orbits is intact. Skull: The calvaria is intact. No evidence of skull fracture. CONCLUSION: 1. No evidence of acute infarct, hemorrhage, mass or edema. 2. 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 3. Significant change since previous study in 2017. . Electronically signed by: Refugio Reese MD 05/09/2018 10:17 PM EDT
--- NOTE | 2018-05-09 22:28 | CT ---
EXAM DATE: 05/09/2018 10:17 PM EDT AGE/SEX: 87 years / Male INDICATIONS: Patient fell and hit head. Also suffered right rib injury and right arm pain. CLINICAL DATA: This is the patient's initial encounter. Patient reports that signs and symptoms have been present for 1 day and indicates a pain score of 7/10. MEDICAL/SURGICAL HISTORY: Gastroesophageal reflux disease. Diabetes, dementia, hypothyroidism, pneumonia. . Mik fundoplication. ORAL CONTRAST: No oral contrast ingested. RADIATION DOSE: 6.55 CTDI (mGy) COMPARISON: No prior exams available for comparison. TECHNIQUE: Multiple contiguous axial images were obtained through the abdomen and pelvis following b olus infusion of 75 ml Omnipaque 350 (iohexol) nonionic water-soluble contrast as a cumulative dose for multiple exams. No oral contrast ingested. Using automated exposure control and adjustment of t he mA and/or kV according to patient size, radiation dose was kept as low as reasonably achievable to obtain optimal diagnostic quality images. DICOM format image data is available electronically for r eview and comparison. FINDINGS: Lower Lungs: Bilateral pleural effusions are noted. There is a moderate size effusion on the right an d a small effusion on the left. Underlying airspace disease is identified in both bases. The heart is moderately enlarged. Liver: The liver has a homogeneous density without space-occupying lesion. There is no dilation of th e biliary tree. Spleen: Homogeneous density without enlargement. Pancreas: Unremarkable without mass or calcification. Kidneys: Diffuse cortical thinning is noted. No evidence of mass or hydronephrosis. Adrenal Glands: Left adrenal nodule measuring 1.6 x 3.1 cm in size is noted. Aorta: The aorta and proximal iliac vessels are grossly unremarkable without aneurysmal dilation. Bowel/Mesentery: The bowel loops are grossly unremarkable. The cecum and sigmoid colon have a normal configuration. Abdominal Wall: Intact. Retroperitoneum: No evidence of adenopathy in the retrocrural, para-aortic, or deep pelvic regions. Bladder: Contours are smooth. Reproductive Organs: The prostate gland is enlarged and projects into the bladder. Inguinal: The inguinal region is unremarkable without evidence of adenopathy. Bony Structures: Unremarkable. CONCLUSION: 1. Bilateral pleural effusions and bibasilar airspace disease. 2. Moderate cardiomegaly. 3. Bilateral renal cortical thinning. 4. Left adrenal gland nodule measuring 3.1 cm 5. Prostatomegaly 6. No evidence of acute intestinal abnormality, suspicious mass or lymphadenopathy. Electronically signed by: Refugio Reese MD 05/09/2018 10:26 PM EDT
--- NOTE | 2018-05-09 22:31 | CT ---
EXAM DATE: 05/09/2018 10:23 PM EDT AGE/SEX: 87 years / Male INDICATIONS: Patient fell and hit head. Also suffered right rib injury and right arm pain. CLINICAL DATA: This is the patient's initial encounter. Patient reports that signs and symptoms have been present for 1 day and indicates a pain score of 7/10. MEDICAL/SURGICAL HISTORY: Gastroesophageal reflux disease. Dementia, diabetes, hypothyroidism, pneumonia. . Mik fundoplication. RADIATION DOSE: 26.72 CTDI (mGy) COMPARISON: No prior exams available for comparison. TECHNIQUE: Contiguous axial images were obtained using helical multirow detector technique. The vol umetric data was post-processed with multiplanar reconstruction in oblique axial, sagittal, and coron al planes. Using automated exposure control and adjustment of the mA and/or kV according to patient s ize, radiation dose was kept as low as reasonably achievable to obtain optimal diagnostic quality andi ges. DICOM format image data is available electronically for review and comparison. FINDINGS: ALIGNMENT: Mild retrolisthesis is noted of C4 on C5. There is slight anterolisthesis of C6 on C7. Cr aniocervical alignment is intact.. FACET AND OSSEOUS STRUCTURES: Vertebral bodies are intact without evidence of compression deformity. Posterior elements are intact without evidence of facet subluxation. Moderate facet arthropathy is i dentified. INTERVERTEBRAL DISC SPACES: Advanced degenerative disc disease is noted at C4-5, C5-6 and C6-7. Ther e is marked disc space narrowing with endplate eburnation and sclerosis. Posterior spondylotic spurri ng is noted. There are no findings of acute disc herniation. NEUROLOGIC STRUCTURES: The spinal cord and nerve roots appear normal. There is no evidence of noemi sherry. CONCLUSION: 1. No evidence of acute bony or soft tissue trauma. 2. Mild degenerative listhesis at C4-5 and C6-7. 3. Severe degenerative disc disease at C4-5, C5-6 and C6-7 Electronically signed by: Refugio Reese MD 05/09/2018 10:30 PM EDT
--- NOTE | 2018-05-09 22:33 | CT ---
EXAM DATE: 05/09/2018 10:17 PM EDT AGE/SEX: 87 years / Male INDICATIONS: Patient fell and hit head. Also suffered right side rib injury and right sided arm pain . CLINICAL DATA: This is the patient's initial encounter. Patient reports that signs and symptoms have been present for 1 day and indicates a pain score of 8/10. MEDICAL/SURGICAL HISTORY: Dementia. Diabetes. Gastroesophageal reflux disease. Hypothyroidism, p neumonia. . Mik fundoplication. RADIATION DOSE: 6.55 CTDI (mGy) ; Combined studies COMPARISON: No prior exams available for comparison. TECHNIQUE: Multiple contiguous axial images were obtained through the chest during bolus infusion of 75 ml Omnipaque 350 (iohexol) nonionic water-soluble contrast as a single exam dose. Images were obtained in suspended respiration using multiple row detector helical technique. Using automated exp osure control and adjustment of the mA and/or kV according to patient size, radiation dose was kept a s low as reasonably achievable to obtain optimal diagnostic quality images. DICOM format image data is available electronically for review and comparison. FINDINGS: Lungs: Interstitial prominence with septal thickening characteristic of moderate interstitial edema. Bibasilar airspace disease is noted. Mediastinum: The heart is moderately to markedly enlarged. Aor tic valvular calcification is identified. Pleurae: Moderate right pleural effusion and small left pleural effusion Axillae: Unremarkable. Bony Structures: Unremarkable. Miscellaneous: The examination was extended to include the upper abdomen, and both adrenal glands ar e normal in size and configuration. CONCLUSION: 1. Cardiomegaly associated with mild interstitial edema and bilateral effusions characteristic of co ngestive heart failure. 2. Bibasilar airspace disease 3. No evidence of acute trauma. Electronically signed by: Refugio Reese MD 05/09/2018 10:32 PM EDT
[2018-05-09] MEDS ORDERED: Bisacodyl 10 MG Supp RECTAL PRN (23:31)
[2018-05-09] MEDS ORDERED: Acetaminophen 325 MG Tablet PO PRN (23:31)
[2018-05-09] MEDS ORDERED: Temazepam 15 MG Capsule PO PRN (23:31)
[2018-05-10] MEDS: Heparin - SQ 10,000 UNITS/ML Vial SQ SCH ×3 (00:17→23:01)
[2018-05-10] MEDS: Morphine Inj 4 MG/ML Vial IV.PUSH PRN ×2 (03:08→23:00)
[2018-05-10] MEDS: Senna/Docusate Sodium 8.6/50 MG Tablet PO SCH ×2 (09:02→22:59)
[2018-05-10 09:20] LABS: Baso # (Auto) 0.1 th/mm3 (0.0-0.2); Baso % (Auto) 1.9 % (0.0-2.0); Eos % (Auto) 0.3 % (0.0-4.0); Hematocrit 38.4 % (39.0-51.0); Hemoglobin 12.4 gm/dL (13.0-17.0); Lymph % (Auto) 14.4 % (9.0-44.0); Mean Corpuscular HGB Conc 32.3 % (32.0-36.0); Mean Corpuscular Hemoglobin 31.1 pg (27.0-34.0); Mean Corpuscular Volume 96.5 fL (80.0-100.0); Mono # (Auto) 0.9 th/mm3 (0.0-0.9); Mono % (Auto) 12.3 % (0.0-8.0); Neut # (Auto) 5.1 th/mm3 (1.8-7.7); Neut % (Auto) 71.1 % (16.0-70.0); Platelet Count 203 th/mm3 (150-450); Red Blood Count 3.98 mil/mm3 (4.50-5.90); Red Cell Distribution Width 15.7 % (11.6-17.2); White Blood Count 7.1 th/mm3 (4.0-11.0)
[2018-05-10 10:01] LABS: Potassium 4.4 meq/L (3.5-5.1)
[2018-05-10 10:04] LABS: Calcium 8.3 mg/dL (8.5-10.1); Carbon Dioxide 25.5 meq/L (21.0-32.0)
[2018-05-10] MEDS ORDERED: Dextrose 50% in Water 50 ML Vial IV.PUSH PRN (10:55)
--- NOTE | 2018-05-10 11:05 | P.HPIM ---
History of Present Illness Primary Care Physician: Андрей Disla MD Chief Complaint: Weakness and fall History of Present Illness: Patient is an 87-year-old gentleman with a history of diabetes and progressive weakness with progressive changes of dementia. Patient comes to the hospital after a fall on his head and right elbow. He did sustain some lacerations which have been repaired in the emergency room. Patient has decreased oral intake and weight loss. He has undergone at least 3 treatments for "pneumonia" . He is short of breath with chest congestion. Patient appears to have quite a bit of weight loss and is cachectic. He has a flat affect and dementia appears to be progressive per the family. He is required more assistance with his activities of daily living. He is a very poor historian but his daughter is at the bedside and his has also come for this evaluation. Patient appears to have some evidence of urinary troubles and has seen urology and was given a medication to help him urinate. Chest x-ray on my review does show some bilateral pulmonary edema changes as well as pleural effusions. Patient has no lower extremity edema but appears to have shortness of breath at rest although he has no hypoxemia. Patient's been recommended for further evaluation treatment here due to weakness and respiratory findings - Diagnosis (1) Weakness (2) SOB (shortness of breath) (3) DM2 (diabetes mellitus, type 2) (4) Dementia Review of Systems All other systems reviewed negative except as stated in HPI PMFSH - History History Provided By: Patient - Medical History Medical History: Medical History (Last Reviewed 05/10/18 @ 11:02 by Anna Faulkner MD) Dementia Diabetes GERD (gastroesophageal reflux disease) Hypothyroid Pneumonia - Surgical History Surgical History: Surgical History (Last Updated 05/10/18 @ 11:02 by Anna Faulkner MD) History of Mik fundoplication History of hand surgery - Family History Family History: Family History (Last Updated 05/10/18 @ 11:02 by Anna Faulkner MD) Other Unknown family medical history - Tobacco History Second Hand Smoke Exposure: No Smoking Status: Never smoker - Alcohol History How Often Do You Have a Drink Containing Alcohol: Never - Substance Use History Substance History: No History of Abuse - Travel History Recent Travel in the [place] Within the Last 8 Weeks: No Recent Travel Out of the Country Within the Last 8 Weeks: No - Immunization History Tetanus Immunization: >5 Years Hx Influenza Vaccine This Season: No Medications and Allergies Active Medications: Active Medications Acetaminophen (Tylenol) 650 mg PO Q4H PRN PRN Reason: Temp > 100.4 Al Hydroxide/Mg Hydroxide (Milk Of Magnesia Liq) 30 ml PO Q12H PRN PRN Reason: Mild Constipation Bisacodyl (Dulcolax Supp) 10 mg RECTAL DAILY PRN PRN Reason: SEVERE CONSITIPATION Heparin Sodium (Porcine) (Heparin Inj) 5,000 units SQ Q12H [facility] Last Admin: 05/10/18 00:17 Dose: 5,000 units Sodium Chloride (Ns Inj) 1,000 mls @ 70 mls/hr IV.CONT .[id number] [facility] Last Admin: 05/10/18 00:17 Dose: 70 mls/hr Lactulose (Lactulose Liq) 30 ml PO DAILY PRN PRN Reason: SEVERE CONSITIPATION Morphine Sulfate (Morphine Inj) 2 mg IV.PUSH Q4H PRN PRN Reason: pain 6-10 Last Admin: 05/10/18 03:08 Dose: 2 mg Ondansetron HCl (Zofran Inj) 4 mg IV.PUSH Q6H PRN PRN Reason: NAUSEA OR VOMITING Senna/Docusate Sodium (Margaret-Colace) 1 tab PO BID [facility] Last Admin: 05/10/18 09:02 Dose: Not Given Sennosides (Senokot) 17.2 mg PO Q12H PRN PRN Reason: Moderate Constipation Sodium Chloride (Ns Flush) 2 ml IV.FLUSH PRN PRN PRN Reason: FLUSH AFTER USING IV ACCESS Temazepam (Restoril) 15 mg PO HS PRN PRN Reason: INSOMNIA Allergies Allergy/AdvReac Type Severity Reaction Status Date / Time No Known Allergies Allergy Unknown none Uncoded 05/09/18 18:52 Home Medications Medication Instructions Recorded Confirmed Type Unable to Obtain Home Meds 05/10/18 05/10/18 History Exam Vital signs: Vital Signs 05/09/18 17:08 05/09/18 18:35 05/09/18 19:00 Temperature 97.3 F L Pulse Rate 61 88 Respiratory Rate 18 Blood Pressure 110/52 L Pulse Oximetry 97 96 05/09/18 21:20 05/09/18 23:03 05/10/18 00:00 Temperature 98.0 F Pulse Rate 86 94 H 100 H Respiratory Rate 24 20 Blood Pressure 120/88 128/78 108/82 Pulse Oximetry 98 96 92 L 05/10/18 01:00 05/10/18 01:49 05/10/18 04:00 Temperature 97.7 F Pulse Rate 87 74 Respiratory Rate 20 Blood Pressure 119/74 Pulse Oximetry 92 L 96 05/10/18 08:00 Temperature 97.8 F Pulse Rate Respiratory Rate Blood Pressure Pulse Oximetry Intake & Output 05/09/18 05/10/18 05/10/18 18:59 06:59 18:59 Intake Total 1240 / 1240 120 / 120 Output Total 350 / 350 25 / 25 Balance 890 / 890 95 / 95 Weight 49.8 kg 50.3 kg Intake: IV 1000 / 1000 NS Inj 1,000 ML @ 1000 mls/hr 1000 / 1000 IV.CONT .Q1H [facility]ICIA Rx#:[id number] Oral 240 / 240 120 / 120 Output: Urine 350 / 350 25 / 25 Other: # Incontinent Voids 2 Weight On Admission 50.3 kg Narrative: GENERAL: Frail and cachectic male who is well-developed, quiet SKIN: Warm and dry. HEAD: Normocephalic. EYES: No scleral icterus. No injection or drainage. NECK: Supple, trachea midline. No JVD or lymphadenopathy. CARDIOVASCULAR: Regular rate and rhythm without murmurs, gallops, or rubs. RESPIRATORY: Breath sounds equal bilaterally. No accessory muscle use. GASTROINTESTINAL: Abdomen soft, non-tender, nondistended. MUSCULOSKELETAL: No cyanosis, or edema. BACK: Nontender without obvious deformity. No CVA tenderness. NEUROLOGICAL: Awake and alert. Cranial nerves II through XII intact. Motor and sensory grossly within normal limits. Five out of 5 muscle strength in all muscle groups. Flat affect Results - Labs CBC & Chem 7: 05/10/18 09:05 05/10/18 09:05 Labs: Short CBC 05/09/18 05/10/18 Range/Units 19:15 09:05 WBC 7.1 7.1 (4.0-11.0) th/mm3 Hgb 12.6 L 12.4 L (13.0-17.0) gm/dL Hct 37.2 L 38.4 L (39.0-51.0) % Plt Count 225 203 (150-450) th/mm3 BMP 05/09/18 05/10/18 19:15 09:05 Sodium 138 141 Potassium 4.4 4.4 Chloride 103 107 Carbon Dioxide 28.0 25.5 BUN 28 H 25 H Creatinine 1.10 0.95 Calcium 8.4 L 8.3 L Cardiac Enzymes 05/09/18 Range/Units 19:15 Troponin I 0.06 H (0.02-0.05) ng/mL - Imaging Impressions Abdomen/Pelvis CT 05/09/18 18:21 CONCLUSION: 1. Bilateral pleural effusions and bibasilar airspace disease. 2. Moderate cardiomegaly. 3. Bilateral renal cortical thinning. 4. Left adrenal gland nodule measuring 3.1 cm 5. Prostatomegaly 6. No evidence of acute intestinal abnormality, suspicious mass or lymphadenopathy. Cervical Spine CT 05/09/18 18:21 CONCLUSION: 1. No evidence of acute bony or soft tissue trauma. 2. Mild degenerative listhesis at C4-5 and C6-7. 3. Severe degenerative disc disease at C4-5, C5-6 and C6-[address] 05/09/18 18:21 CONCLUSION: 1. Cardiomegaly associated with mild interstitial edema and bilateral effusions characteristic of congestive heart failure. 2. Bibasilar airspace disease 3. No evidence of acute trauma. Chest X-Ray 05/09/18 18:21 CONCLUSION: Cardiomegaly with interstitial vascular congestion and bibasilar airspace disease. Bilateral pleural effusions Elbow X-Ray 05/09/18 18:21 CONCLUSION: No evidence of recent bony injury. Head CT 05/09/18 18:21 CONCLUSION: 1. No evidence of acute infarct, hemorrhage, mass or edema. 2. 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 3. Significant change since previous study in 2017. . Caprini VTE Risk Assessment Caprini VTE Risk Assessment: Moderate/High Risk (score >= 2) Caprini Risk Assessment Model: Point Value = 1 Point Value = 2 Point Value = 3 Point Value = 5 Age 41-60 Minor surgery BMI > 25 kg/m2 Swollen legs Varicose veins or History of unexplained or recurrent spontaneous Oral contraceptives or hormone replacement Sepsis (< 1 month) Serious lung disease, including pneumonia (< 1 month) Abnormal pulmonary function Acute myocardial infarction Congestive heart failure (< 1 month) History of inflammatory bowel disease Medical patient at bed rest Age 61-74 Arthroscopic surgery Major open surgery (> 45 min) Laparoscopic surgery (> 45 min) Malignancy Confined to bed (> 72 hours) Immobilizing plaster cast Central venous access Age >= 75 History of VTE Family history of VTE Factor V Leiden Prothrombin [id number] Lupus anticoagulant Anticardiolipin antibodies Elevated serum homocysteine Heparin-induced thrombocytopenia Other congenital or acquired thrombophilia Stroke (< 1 month) Elective arthroplasty Hip, pelvis, or leg fracture Acute spinal cord injury (< 1 month) Prophylaxis Regimen: Total Risk Factor Score Risk Level Prophylaxis Regimen 0-1 Low Early ambulation 2 Moderate Order ONE of the following: *Sequential Compression Device (SCD) *Heparin 5000 units SQ BID 3-4 Higher Order ONE of the following medications: *Heparin 5000 units SQ TID *Enoxaparin/Lovenox 40 mg SQ daily (WT < 150 kg, CrCl > 30 mL/min) *Enoxaparin/Lovenox 30 mg SQ daily (WT < 150 kg, CrCl > 10-29 mL/min) *Enoxaparin/Lovenox 30 mg SQ BID (WT < 150 kg, CrCl > 30 mL/min) AND/OR *Sequential Compression Device (SCD) 5 or more Highest Order ONE of the following medications: *Heparin 5000 units SQ TID (Preferred with Epidurals) *Enoxaparin/Lovenox 40 mg SQ daily (WT < 150 kg, CrCl > 30 mL/min) *Enoxaparin/Lovenox 30 mg SQ daily (WT < 150 kg, CrCl > 10-29 mL/min) *Enoxaparin/Lovenox 30 mg SQ BID (WT < 150 kg, CrCl > 30 mL/min) AND *Sequential Compression Device (SCD) Assessment and Plan - Assessment (1) Weakness Code(s): R53.1 - Weakness Status: Acute Plan: Etiology unclear Rule out heart failure Follow BNP, PT eval (2) SOB (shortness of breath) Code(s): R06.02 - Shortness of breath Status: Acute Plan: Follow-up echocardiogram Follow-up cardiac enzymes and BNP Continue with diuresis gently given hypotension Follow-up intake outtake (3) DM2 (diabetes mellitus, type 2) Code(s): E11.9 - Type 2 diabetes mellitus without complications Status: Acute Plan: Home meds when available for review Follow-up diabetic diet and Accu-Cheks follow-up hemoglobin A1c (4) Dementia Code(s): F03.90 - Unspecified dementia without behavioral disturbance Status: Acute Plan: Stable at this time Continue with redirection and medicated as needed H&P: Quality - VTE Deep Vein Thrombosis/Pulmonary Embolism Present on Admission: No
[2018-05-10 11:57] LABS: Troponin I 0.09 ng/mL (0.02-0.05)
[2018-05-10 12:03] LABS: Thyroid Stimulating Hormone 5.79 uIU/mL (0.358-3.740)
[2018-05-10] MEDS: Finasteride 5 MG Tablet PO SCH (13:16)
[2018-05-10] MEDS: Insulin NovoLOG Aspart Correctional Sugar Inj SQ SCH ×3 (13:16→22:59)
--- NOTE | 2018-05-10 14:36 | ECG ---
Date Performed: 05/09/2018 Time Performed: 19:09:00 PTAGE: 87 years EKG: ATRIAL FIBRILLATION LEFT BUNDLE BRANCH BLOCK ABNORMAL ECG Since the PREVIOUS TRACING , no significant change noted PREVIOUS TRACIN08/01/2017 08.28 DOCTOR: Steve Cordero Interpretating Date/Time 05/10/2018 14:33:23
[2018-05-10 17:04] LABS: Hemoglobin A1c 6.5 % (4.3-6.0)
--- NOTE | 2018-05-10 18:02 | ECHRPT ---
Indication: HEART FAILURE CONCLUSIONS The left ventricular systolic function is severely reduced with an estimated ejection fraction less than 20%. Moderate concentric left ventricular hypertrophy. Left to right shunt across the atrial septum, there is a mean gradient of 9mmHg across the shunt. Cqfa-[id number] mitral valve regurgitation. Moderate to severe aortic valve stenosis (peak 50, mean 27, MASON 0.4). Mild aortic valve regurgitation. There is moderate tricuspid regurgitation. The estimated pulmonary arterial pressure is 70.5 mmHg. A left sided pleural effusion is present. BP: / HR: Rhythm: Sinus MEASUREMENTS (Male / Female) Normal Values Technical Quality:Fair 2D ECHO LV Diastolic Diameter PLAX 4.3 cm 4.2 - 5.9 / 3.9 - 5.3 cm LV Systolic Diameter PLAX 4.1 cm IVS Diastolic Thickness 1.5 cm 0.6 - 1.0 / 0.6 - 0.9 cm LVPW Diastolic Thickness 1.5 cm 0.6 - 1.0 / 0.6 - 0.9 cm LV Relative Wall Thickness 0.7 RV Internal Dim ED PLAX 2.6 cm LVOT Diameter 2.1 cm Aortic Root Diameter 3.1 cm LA Systolic Diameter LX 3.9 cm 3.0 - 4.0 / 2.7 - 3.8 cm DOPPLER AV Peak Velocity 354.0 cm/s AV Peak Gradient 50.1 mmHg AV Mean Gradient 27.0 mmHg AV Velocity Time Integral 77.7 cm AI Peak Velocity 318.5 cm/s AI Peak Gradient 40.6 mmHg AI Pressure Half Time 521.0 ms LVOT Peak Velocity 48.1 cm/s LVOT Peak Gradient 0.9 mmHg LVOT Velocity Time Integral 8.8 cm AV Area Cont Eq vti 0.4 cm AV Area Cont Eq pk 0.5 cm Mitral E Point Velocity 43.9 cm/s Mitral A Point Velocity 33.6 cm/s Mitral E to A Ratio 1.3 LV E' Lateral Velocity 3.4 cm/s Mitral E to LV E' Lateral Ratio 12.9 LV E' Septal Velocity 2.7 cm/s Mitral E to LV E' Septal Ratio 16.1 TR Peak Velocity 389.0 cm/s TR Peak Gradient 60.5 mmHg Right Atrial Pressure 10.0 mmHg Pulmonary Artery Systolic Pressu 70.5 mmHg Right Ventricular Systolic Press 70.5 mmHg PV Peak Velocity 30.8 cm/s PV Peak Gradient 0.4 mmHg FINDINGS LEFT VENTRICLE Normal left ventricular size. Moderate concentric left ventricular hypertrophy. The left ventricular systolic function is severely reduced with an estimated ejection fraction less than 20%. 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 There is severe diffuse global left ventricular dysfunction. RIGHT VENTRICLE The right ventricle is moderately dilated. The right ventricular systoilc function is moderately decreased. LEFT ATRIUM The left atrial size is [id number] dilated. RIGHT ATRIUM The right atrial size is [id number] dilated. ATRIAL SEPTUM Left to right shunt across the atrial septum, there is a mean gradient of 9mmHg across the shunt. AORTA The aortic root and proximal ascending aorta are not well visualized. MITRAL VALVE Grossly normal appearing Vqtq-zp-ohazysgm mitral valve regurgitation. AORTIC VALVE Severe thickening of the aortic valve leaflets. Mild aortic valve regurgitation. Moderate to severe aortic valve stenosis (peak 50, mean 27, MASON 0.4) TRICUSPID VALVE There is moderate tricuspid regurgitation. The estimated pulmonary arterial pressure is 70.5 mmHg. PULMONARY VALVE Mild pulmonary valve regurgitation. VESSELS The inferior vena cava was not well visualized. PERICARDIUM A left sided pleural effusion is present. A right sided pleural effusion is present. Sarath Del Cid DO (Electronically Signed) Final Date:10 May 2018 18:01
--- NOTE | 2018-05-10 23:27 | MB ---
cc: Sarath Del Cid DO DATE: 05/10/2018 REASON FOR CONSULTATION: Congestive heart failure. HISTORY OF PRESENT ILLNESS: Josef Romero is a pleasant 87-year-old male who presented to [facility] after a fall. Apparently, he landed on his head and right elbow and sustained some lacerations which were repaired in the emergency room. He has also had significant shortness of breath for a number of months and has undergone antibiotic treatment for possible will pneumonia 3 times. Upon admission, he was found to be in significant heart failure and admitted to the ICU. In discussing with his and daughter, he has apparently gotten progressively weak and shown signs of the starts of dementia. He has also had a significant decrease in his oral intake and overall weight loss. He appears cachectic in nature. He states that he has chest pain along his ribs and this is from a fall where he landed on the right side of his ribs and they are bruised. They attempted to diurese him and were having trouble and a Torres was placed and he put out 1400 mL of urine. In seeing him, he is starting to breathe better, but is unable to lie down in the bed and so the bed is at almost a 90-degree angle to help with his oxygenation. PAST MEDICAL HISTORY: 1. Dementia. 2. Diabetes. 3. GERD. 4. Hypothyroidism. 5. Pneumonia. 6. BPH. PAST SURGICAL HISTORY: 1. History of Mik fundoplication. 2. Hand surgery. ALLERGIES: NO KNOWN DRUG ALLERGIES. MEDICATIONS: 1. Finasteride 5 mg daily. 2. Metformin 500 mg b.i.d. 3. Flomax 0.4 mg daily. SOCIAL HISTORY: The patient does not have a history of tobacco, alcohol or drug abuse. REVIEW OF SYSTEMS: Fourteen systems were reviewed, including osteopathic. Pertinent positives and negatives above, otherwise negative. PHYSICAL EXAMINATION: VITAL SIGNS: Temperature 97.5, heart rate 82, blood pressure 106/84, respirations 23, pulse oximetry 97% on 2 liters. GENERAL: The patient is in no acute distress, alert and awake but not oriented. HEENT: Extraocular muscles intact. Mucous membranes moist. NECK: Supple with mild JVD bilaterally. Carotid upstroke is brisk in nature. HEART: Regular rate and rhythm. Positive first and second heart sounds with a 2/6 crescendo decrescendo murmur to the right sternal border which is mid to late peaking. LUNGS: Decreased breath sounds bilaterally with rales at the bases. ABDOMEN: Soft, nontender, nondistended. No organomegaly noted. EXTREMITIES: Show trace edema. NEUROLOGIC: No focal deficits. SKIN: Warm, dry and intact. OSTEOPATHIC: No kyphoscoliosis or lordosis. Overall, the patient appears significantly cachectic with increased muscle wasting. LABORATORY DATA: Hemoglobin 12.4, hematocrit 38.4, platelets 203. Potassium 4.4, BUN 25, creatinine 0.95. Troponin 0.09. BNP 2586. TSH 5.79. Electrocardiogram (05/09/2018 at 1909), probable sinus rhythm (although read as atrial fibrillation) with PACs, left bundle branch block with secondary ST-T wave changes. IMPRESSION: 1. Acute decompensated heart failure. 2. 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 3. Moderate to severe aortic stenosis (peak gradient 50, mean gradient 27, aortic valve area calculated at 0.4) with mild aortic valve regurgitation. 4. Severe pulmonary hypertension (right ventricular systolic pressure 70). 5. Left to right shunt noted on echocardiogram across the inner atrial septum, possible patent foramen ovale. 6. Minimally elevated troponin, type 2, due to heart failure. 7. Dementia. RECOMMENDATIONS: 1. Mr. Romero presented with falls, progression of his dementia, heart failure and overall progressive decline. 2. For his heart failure, we will continue to diurese him. A Torres was placed as a necessity as he most likely had a urinary obstruction as he was not putting out urine as he should. 3. Echo shows an ejection fraction of 20% or less with moderate to severe aortic stenosis, severe pulmonary hypertension, and a PFO with a left to right shunt. 4. Minimally elevated troponin is most likely type 2 due to his overall illness and shortness of breath due to congestive heart failure. 5. I had a long discussion with the patient's daughter and and they agree that we will treat him conservatively by diuresing him to try to manage his fluid overload state and heart failure. They have declined further workup including cardiac catheterization. I would not consider further workup including ischemic evaluation as I do not believe the patient would be a good candidate for open heart surgery or even TAVR due to his progressive decline, his progressing dementia and overall frail state. 6. Consideration should be made for a palliative care assessment, which I did discuss with the daughter and . 7. Further recommendations will be made based on the hospital course. Thank you for allowing me to see Josef Romero. If there are any questions, please do not hesitate to call. DO MALIA Tapia/antonio , 10:19 PM , 10:34 PM
[2018-05-11] MEDS: Insulin NovoLOG Aspart Correctional Sugar Inj SQ SCH ×5 (06:13→21:12)
[2018-05-11] MEDS: Finasteride 5 MG Tablet PO SCH (09:38)
[2018-05-11] MEDS: Senna/Docusate Sodium 8.6/50 MG Tablet PO SCH ×2 (09:38→21:12)
--- NOTE | 2018-05-11 10:08 | P.PNIM ---
Subjective Interval history: Patient seen and evaluated today in follow-up for fall. Patient currently has severe cardiomyopathy with severe valvular disease. Palliative care and hospice discussed with patient and family who are agreeable. Hospice consult pending. Cardiology eval appreciated Patient blood pressure is low. He is eating a little more but with significant assistance Physical Exam Vital signs: Vital Signs 05/10/18 11:00 05/10/18 11:44 05/10/18 12:00 Temperature 97.2 F L Pulse Rate 94 H 82 Respiratory Rate 38 H 24 Blood Pressure Pulse Oximetry 94 L 85 L 05/10/18 12:14 05/10/18 13:00 05/10/18 14:00 Temperature Pulse Rate 92 H 102 H 74 Respiratory Rate 67 H 36 H 17 Blood Pressure 117/94 H Pulse Oximetry 98 05/10/18 15:00 05/10/18 16:00 05/10/18 16:44 Temperature 97.5 F L Pulse Rate 78 76 78 Respiratory Rate 28 H 28 H 23 Blood Pressure 106/84 Pulse Oximetry 96 97 97 05/10/18 17:00 05/10/18 20:00 05/10/18 23:26 Temperature 97.6 F Pulse Rate 82 74 Respiratory Rate 19 20 Blood Pressure 100/73 Pulse Oximetry 97 96 94 L 05/11/18 00:00 05/11/18 04:00 Temperature 97.7 F 97.9 F Pulse Rate 73 82 Respiratory Rate 20 20 Blood Pressure 102/61 107/70 Pulse Oximetry 94 L 96 Intake & Output 05/10/18 05/11/18 05/11/18 18:59 06:59 18:59 Intake Total 480 / 480 120 / 120 Output Total 1974 350 / 350 Balance -1495 / -1495 -230 / -230 Weight 49.8 kg Intake: Oral 480 / 480 120 / 120 Output: Urine 1974 Urine Amount (Catheter) 350 / 350 Indwelling Urethral Catheter 350 / 350 Other: Date of Last Bowel Movement 05/09/18 # Bowel Movements 0 Narrative: GENERAL: Frail elderly gentleman SKIN: Warm and dry. HEAD: Normocephalic. EYES: No scleral icterus. No injection or drainage. NECK: Supple, trachea midline. No JVD or lymphadenopathy. CARDIOVASCULAR: Systolic and diastolic murmurs and regular rate and rhythm RESPIRATORY: Breath sounds equal bilaterally. No accessory muscle use. GASTROINTESTINAL: Abdomen soft, non-tender, nondistended. MUSCULOSKELETAL: No cyanosis, or edema. BACK: Nontender without obvious deformity. No CVA tenderness. NEUROLOGICAL: Lethargic and weak in general - Urinary Catheter Management Indwelling Urethral Catheter Cath placed during this visit: yes Reason for continuing: Chronic Urinary Retention Insertion date: 05/10/18 Insertion time: 12:45 Results - Labs CBC & Chem 7: 05/10/18 09:05 05/10/18 09:05 Laboratory Results - last 24 hr 05/09/18 05/10/18 05/10/18 19:15 09:05 09:05 Carbon Dioxide 25.5 Anion Gap 9 BUN 25 H Creatinine 0.95 Estimated GFR 75 L POC Glucose Random Glucose 184 H Hemoglobin A1c 6.5 H Calcium 8.3 L Troponin I B-Natriuretic Peptide 2586 H TSH 05/10/18 05/10/18 05/10/18 09:05 13:12 16:40 Carbon Dioxide Anion Gap BUN Creatinine Estimated GFR POC Glucose 163 H 86 Random Glucose Hemoglobin A1c Calcium Troponin I 0.09 H B-Natriuretic Peptide TSH 5.790 H 05/10/18 05/11/18 05/11/18 20:17 03:09 08:46 Carbon Dioxide Anion Gap BUN Creatinine Estimated GFR POC Glucose 105 114 H 113 H Random Glucose Hemoglobin A1c Calcium Troponin I B-Natriuretic Peptide TSH - Procedures Echocardiogram:The left ventricular systolic function is severely reduced with an estimated ejection fraction less than 20%. Moderate concentric left ventricular hypertrophy. Left to right shunt across the atrial septum, there is a mean gradient of 9mmHg across the shunt. [id number] mitral valve regurgitation. Moderate to severe aortic valve stenosis (peak 50, mean 27, MASON 0.4). Mild aortic valve regurgitation. There is moderate tricuspid regurgitation. The estimated pulmonary arterial pressure is 70.5 mmHg. Assessment and Plan - Assessment (1) Weakness Code(s): R53.1 - Weakness Status: Acute Plan: Appears to be related to end-stage heart failure per echocardiogram Continue with hospice evaluation Cardiac consultation appreciated (2) SOB (shortness of breath) Code(s): R06.02 - Shortness of breath Status: Acute Plan: Gentle diuresis as his blood pressure will tolerate Continue oxygen supplement (3) DM2 (diabetes mellitus, type 2) Code(s): E11.9 - Type 2 diabetes mellitus without complications Status: Acute Plan: Will likely be liberal with his diet given his poor nutritional status and follow with sliding scale (4) Dementia Code(s): F03.90 - Unspecified dementia without behavioral disturbance Status: Acute Plan: Stable at baseline at this time likely complicated due to severe CHF - Plan Discharge Planning: To hospice care center versus hospice at home when available
[2018-05-11] MEDS: Heparin - SQ 10,000 UNITS/ML Vial SQ SCH ×2 (14:03→22:52)
--- NOTE | 2018-05-11 14:52 | P.PNCA ---
Subjective Interval history: No events overnight Appears better No O2 needed at this time Physical Exam Vital signs: Vital Signs 05/10/18 15:00 05/10/18 16:00 05/10/18 16:44 Temperature 97.5 F L Pulse Rate 78 76 78 Respiratory Rate 28 H 28 H 23 Blood Pressure 106/84 Pulse Oximetry 96 97 97 05/10/18 17:00 05/10/18 20:00 05/10/18 23:26 Temperature 97.6 F Pulse Rate 82 74 Respiratory Rate 19 20 Blood Pressure 100/73 Pulse Oximetry 97 96 94 L 05/11/18 00:00 05/11/18 04:00 05/11/18 10:10 Temperature 97.7 F 97.9 F Pulse Rate 73 82 Respiratory Rate 20 20 Blood Pressure 102/61 107/70 Pulse Oximetry 94 L 96 100 Intake & Output 05/10/18 05/11/18 05/11/18 18:59 06:59 18:59 Intake Total 480 / 480 120 / 120 Output Total 1974 350 / 350 Balance -1495 / -1495 -230 / -230 Weight 49.8 kg Intake: Oral 480 / 480 120 / 120 Output: Urine 1974 Urine Amount (Catheter) 350 / 350 Indwelling Urethral Catheter 350 / 350 Other: Date of Last Bowel Movement 05/09/18 # Bowel Movements 0 Narrative: GENERAL: Frail elderly gentleman SKIN: Warm and dry. HEAD: Normocephalic. EYES: No scleral icterus. No injection or drainage. NECK: Supple, trachea midline. No JVD or lymphadenopathy. CARDIOVASCULAR: Systolic and diastolic murmurs and regular rate and rhythm RESPIRATORY: Breath sounds equal bilaterally. No accessory muscle use. GASTROINTESTINAL: Abdomen soft, non-tender, nondistended. MUSCULOSKELETAL: No cyanosis, or edema. BACK: Nontender without obvious deformity. No CVA tenderness. NEUROLOGICAL: Lethargic and weak in general - Urinary Catheter Management Indwelling Urethral Catheter Cath placed during this visit: yes Reason for continuing: Chronic Urinary Retention Insertion date: 05/10/18 Insertion time: 12:45 Assessment and Plan - Assessment (1) Cardiomyopathy Code(s): I42.9 - Cardiomyopathy, unspecified Status: Acute (2) Acute decompensated heart failure Code(s): I50.9 - Heart failure, unspecified Status: Acute (3) Aortic stenosis Code(s): I35.0 - Nonrheumatic aortic (valve) stenosis Status: Acute (4) Frailty Code(s): R54 - Age-related physical debility Status: Acute (5) Weakness Code(s): R53.1 - Weakness Status: Acute (6) SOB (shortness of breath) Code(s): R06.02 - Shortness of breath Status: Acute - Plan 1) Falls/progressive weakness 2) Dementia 3) Acute decompensated heart failure/new cardiomyopathy Con't diuresis Appears better compensated at this time 4) Frailty 5) Severe PHTN 6) PFO with left to right shunt 7) Elevated troponins Type 2 due to heart failure 8) Conservative management Discussed with Son and Son-in-law as well as Dr. Faulkner Agree with Hospice consultation
[2018-05-12] MEDS: Morphine Inj 4 MG/ML Vial IV.PUSH PRN ×2 (00:32→04:20)
[2018-05-12] MEDS: Insulin NovoLOG Aspart Correctional Sugar Inj SQ SCH ×3 (06:33→12:18)
--- NOTE | 2018-05-12 07:42 | P.PNIM ---
Subjective Interval history: Patient seen in follow-up for discharge planning. Patient with new diagnosis of congestive heart failure, PFO shunt and aortic stenosis. No events overnight. Patient calm and comfortable. Physical Exam Vital signs: Vital Signs 05/11/18 08:00 05/11/18 10:10 05/11/18 12:00 Temperature 97.6 F 98.6 F Pulse Rate 81 84 Respiratory Rate 25 H 25 H Blood Pressure 87/63 L 94/57 L Pulse Oximetry 100 100 95 05/11/18 16:00 05/11/18 20:00 05/12/18 00:00 Temperature 98.5 F 98.7 F 97.6 F Pulse Rate 78 73 96 H Respiratory Rate 21 14 20 Blood Pressure 94/87 L 108/83 118/81 Pulse Oximetry 92 L 95 98 05/12/18 04:00 Temperature 97.5 F L Pulse Rate 96 H Respiratory Rate 20 Blood Pressure 104/90 Pulse Oximetry 94 L Intake & Output 05/11/18 05/12/18 05/12/18 18:59 06:59 18:59 Intake Total 100 / 100 120 / 120 Output Total 400 / 400 150 / 150 Balance -300 / -300 -30 / -30 Weight 50.3 kg Intake: Oral 100 / 100 120 / 120 Output: Urine Amount (Catheter) 400 / 400 150 / 150 Indwelling Urethral Catheter 400 / 400 150 / 150 Other: Date of Last Bowel Movement 05/09/18 # Bowel Movements 0 Narrative: GENERAL: Frail elderly gentleman, SKIN: Warm and dry. HEAD: Normocephalic. EYES: No scleral icterus. No injection or drainage. NECK: Supple, trachea midline. No JVD or lymphadenopathy. CARDIOVASCULAR: Regular rate and rhythm with significant diastolic and systolic murmur RESPIRATORY: Breath sounds equal bilaterally. No accessory muscle use. GASTROINTESTINAL: Abdomen soft, non-tender, nondistended. MUSCULOSKELETAL: No cyanosis, or edema. BACK: Nontender without obvious deformity. No CVA tenderness. NEUROLOGICAL: Lethargic soft with clear speech - Urinary Catheter Management Indwelling Urethral Catheter Cath placed during this visit: yes Reason for continuing: Chronic Urinary Retention Insertion date: 05/10/18 Insertion time: 12:45 Results - Labs CBC & Chem 7: 05/10/18 09:05 05/10/18 09:05 Laboratory Results - last 24 hr 05/11/18 05/11/1818 08:46 12:35 16:53 POC Glucose 113 H 137 H 131 H 05/11/18 20:56 POC Glucose 162 H - Procedures Echocardiogram:The left ventricular systolic function is severely reduced with an estimated ejection fraction less than 20%. Moderate concentric left ventricular hypertrophy. Left to right shunt across the atrial septum, there is a mean gradient of 9mmHg across the shunt. [id number] mitral valve regurgitation. Moderate to severe aortic valve stenosis (peak 50, mean 27, MASON 0.4). Mild aortic valve regurgitation. There is moderate tricuspid regurgitation. The estimated pulmonary arterial pressure is 70.5 mmHg. Assessment and Plan - Assessment (1) Weakness Code(s): R53.1 - Weakness Status: Acute Plan: Appears to be related to end-stage heart failure per echocardiogram Continue with hospice planning Cardiac consultation appreciated (2) SOB (shortness of breath) Code(s): R06.02 - Shortness of breath Status: Acute Plan: Continue with supportive care (3) DM2 (diabetes mellitus, type 2) Code(s): E11.9 - Type 2 diabetes mellitus without complications Status: Acute Plan: Will likely be liberal with his diet given his poor nutritional status and follow with sliding scale (4) Dementia Code(s): F03.90 - Unspecified dementia without behavioral disturbance Status: Acute Plan: Stable at baseline at this time likely complicated due to severe CHF - Plan Discharge Planning: To hospice care center when arrangements made
[2018-05-12 09:31] VITALS: O2SAT 100
[2018-05-12] MEDS: Senna/Docusate Sodium 8.6/50 MG Tablet PO SCH (12:02)
[2018-05-12] MEDS: Finasteride 5 MG Tablet PO SCH (12:04)
[2018-05-12] MEDS: Heparin - SQ 10,000 UNITS/ML Vial SQ SCH (12:16)
[2018-05-12 15:13] VITALS: BP 101/83; PULSE 94; RESP 33; TEMP 97.7
--- NOTE | 2018-05-13 10:32 | P.DS ---
Date of admission: 05/09/18 23:31 Primary care physician: Андрей Disla MD Brief History from admission: Patient is an 87-year-old gentleman with a history of diabetes and progressive weakness with progressive changes of dementia. Patient comes to the hospital after a fall on his head and right elbow. He did sustain some lacerations which have been repaired in the emergency room. Patient has decreased oral intake and weight loss. He has undergone at least 3 treatments for "pneumonia" . He is short of breath with chest congestion. Patient appears to have quite a bit of weight loss and is cachectic. He has a flat affect and dementia appears to be progressive per the family. He is required more assistance with his activities of daily living. He is a very poor historian but his daughter is at the bedside and his has also come for this evaluation. Patient appears to have some evidence of urinary troubles and has seen urology and was given a medication to help him urinate. Chest x-ray on my review does show some bilateral pulmonary edema changes as well as pleural effusions. Patient has no lower extremity edema but appears to have shortness of breath at rest although he has no hypoxemia. Patient's been recommended for further evaluation treatment here due to weakness and respiratory findings DS: Diagnosis - Discharge Diagnosis (1) Weakness Status: Acute (2) SOB (shortness of breath) Status: Acute (3) DM2 (diabetes mellitus, type 2) Status: Acute (4) Dementia Status: Acute DS: Medications - Discharge Medications Prescriptions: carvedilol [Coreg] 3.125 mg PO BID #62 tab DS: Summary Hospital Course: Patient is an 87-year-old gentleman was admitted with failure to thrive and frequent falls. Was found to have severe cardiomyopathy, severe valvular abnormality and overall prognosis was poor. Consultation with cardiology and palliative prognosis and pursuing of hospice care was agreed upon with team and the family. Patient did well with comfort care management and was discharged to hospice care center. - Time Spent with Patient Total time spent providing and/or coordinating discharge services: Greater than 30 minutes - Quality: VTE Deep Vein Thrombosis/Pulmonary Embolism Present on Admission: No Exam Vital signs: Vital Signs 05/12/18 12:00 Temperature 97.7 F Pulse Rate 94 H Respiratory Rate 33 H Blood Pressure 101/83 Intake & Output 05/12/18 05/13/18 05/13/18 18:59 06:59 18:59 Other: Date of Last Bowel Movement 05/09/18 Narrative: GENERAL: Frail elderly lethargic male SKIN: Warm and dry. HEAD: Normocephalic. EYES: No scleral icterus. No injection or drainage. NECK: Supple, trachea midline. No JVD or lymphadenopathy. CARDIOVASCULAR: Regular rate and rhythm with systolic and diastolic murmurs RESPIRATORY: Breath sounds equal bilaterally. No accessory muscle use. GASTROINTESTINAL: Abdomen soft, non-tender, nondistended. MUSCULOSKELETAL: No cyanosis, or edema. BACK: Nontender without obvious deformity. No CVA tenderness. NEUROLOGICAL: Lethargic, weak Results Procedures completed during hospitalization: Echocardiogram:The left ventricular systolic function is severely reduced with an estimated ejection fraction less than 20%. Moderate concentric left ventricular hypertrophy. Left to right shunt across the atrial septum, there is a mean gradient of 9mmHg across the shunt. [id number] mitral valve regurgitation. Moderate to severe aortic valve stenosis (peak 50, mean 27, MASON 0.4). Mild aortic valve regurgitation. There is moderate tricuspid regurgitation. The estimated pulmonary arterial pressure is 70.5 mmHg. - Impressions ITS Impressions Abdomen/Pelvis CT 05/09/18 18:21 CONCLUSION: 1. Bilateral pleural effusions and bibasilar airspace disease. 2. Moderate cardiomegaly. 3. Bilateral renal cortical thinning. 4. Left adrenal gland nodule measuring 3.1 cm 5. Prostatomegaly 6. No evidence of acute intestinal abnormality, suspicious mass or lymphadenopathy. Cervical Spine CT 05/09/18 18:21 CONCLUSION: 1. No evidence of acute bony or soft tissue trauma. 2. Mild degenerative listhesis at C4-5 and C6-7. 3. Severe degenerative disc disease at C4-5, C5-6 and C6-[address] 05/09/18 18:21 CONCLUSION: 1. Cardiomegaly associated with mild interstitial edema and bilateral effusions characteristic of congestive heart failure. 2. Bibasilar airspace disease 3. No evidence of acute trauma. Chest X-Ray 05/09/18 18:21 CONCLUSION: Cardiomegaly with interstitial vascular congestion and bibasilar airspace disease. Bilateral pleural effusions Elbow X-Ray 05/09/18 18:21 CONCLUSION: No evidence of recent bony injury. Head CT 05/09/18 18:21 CONCLUSION: 1. No evidence of acute infarct, hemorrhage, mass or edema. 2. 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 3. Significant change since previous study in 2017. . Discharge Plan - Discharge Disposition Patient Disposition: [facility] Hospice/Med Facility - Discharge Condition Condition: Stable - Discharge Order Discharge Orders: Discharge Order (Routine); Ordered 05/12/18 Ordered By: Anna Faulkner - Physicians Team Primary Care Provider: Андрей Disla Attending Provider: Anna Faulkner Other Providers: Sarath Del Cid DO ; [employer],Sourav
== END 2018-05-12 13:55 | disposition hospice, inpatient (51) ==
LOC: PHED 16:53 → PHICU 16:53 → PHEDA 16:53 → PHICU 05-10 00:45
PROVIDERS: ADMIT Hospitalist; ATTEND Hospitalist
DX: Z87.01 Personal history of pneumonia (recurrent); R64 Cachexia; N40.0 Benign prostatic hyperplasia without lower urinary tract symptoms; R53.1 Weakness; R62.7 Adult failure to thrive; Z91.81 History of falling; I35.1 Nonrheumatic aortic (valve) insufficiency; W18.30XA Fall on same level, unspecified, initial encounter; I50.9 Heart failure, unspecified; E27.8 Other specified disorders of adrenal gland; Z79.84 Long term (current) use of oral hypoglycemic drugs; S09.90XA Unspecified injury of head, initial encounter; J90 Pleural effusion, not elsewhere classified; K21.9 Gastro-esophageal reflux disease without esophagitis; I27.20 Pulmonary hypertension, unspecified; I35.0 Nonrheumatic aortic (valve) stenosis; E11.9 Type 2 diabetes mellitus without complications; R54 Age-related physical debility; R74.8 Abnormal levels of other serum enzymes; I42.0 Dilated cardiomyopathy; F03.90 Unspecified dementia, unspecified severity, without behavioral disturbance, psychotic disturbance, mood disturbance, and anxiety; R29.6 Repeated falls; S51.011A Laceration without foreign body of right elbow, initial encounter; R06.02 Shortness of breath; M50.321 Other cervical disc degeneration at C4-C5 level